=== PATIENT | male | born 1990 | race African-American/Black ===

== ENCOUNTER 2021-04-21 22:14 | Emergency (ER) | payer OTHER, SELFPAY ==
--- NOTE | ~2021-04-21 | XR_ITS ---
EXAMINATION: XR chest 2V DATE: 04/21/2021 22:42 INDICATION: Palpitations and congestion, left-sided chest pain TECHNIQUE: PA and lateral views of the chest are obtained. COMPARISON: 10/30/2006 FINDINGS: The lungs are free of acute opacities. There is no pleural effusion or pneumothorax. The ca rdiomediastinal silhouette is normal. The visualized bones and soft tissues are unremarkable. IMPRESSION: 1. No acute cardiopulmonary abnormality. Reviewed, dictated and finalized at location A.
[2021-04-21 22:16] VITALS: BP 151/94; PULSE 79; RESP 20; TEMP 36.7; O2SAT 100
--- NOTE | 2021-04-21 22:16 | ECG_ITS ---
Measurements Intervals [place] Rate: 77 P: 57 PA: 132 QRS: 67 QRSD: 80 T: 49 QT: 346 QTc: 393 Interpretive Statements SINUS RHYTHM ST ELEVATION IN DIFFUSE LEADS- PROBABLY EARLY REPOLARIZATION ABNORMALITY BORDERLINE ECG Electronically Signed On 04-22-2021 5:21:59 CDT by Matti Pierson D.O.
[2021-04-21 23:12] LABS: Basophils Percent Auto 0.4 % (0.2-1.2); Eosinophils Absolute Auto 1.1 K/mm3 (0-0.3); Eosinophils Percent Auto 14.4 % (0-4.4); Hematocrit 43.9 % (42.0-52.0); Hemoglobin 14.3 g/dL (14.0-18.0); Immature Granulocyte Absolute 0.02 K/mm3 (0.00-0.031); Immature Granulocyte Percent A 0.3 % (0-0.5); Lymphocytes Absolute Auto 2.78 K/mm3 (0.9-3.2); Lymphocytes Percent Auto 37.8 % (18.3-44.2); Mean Corpuscular HGB Conc 32.6 g/dl (32-36); Mean Corpuscular Hemoglobin 27.9 pg (26-34); Mean Corpuscular Volume 85.6 fl (80-100); Mean Platelet Volume 9.8 fl (7.4-10.4); Monocytes Absolute Auto 0.8 K/mm3 (0.1-0.6); Monocytes Percent Auto 10.6 % (2.6-8.5); Neutrophils Absolute Auto 2.7 K/mm3 (1.3-6.7); Neutrophils Percent Auto 36.5 % (45.5-73.1); Platelet Count Result 248 k/mm3 (150-375); Red Blood Count 5.13 M/mm3 (4.6-6.20); Red Cell Distribution Width 13.1 % (11.5-14.5); White Blood Count 7.4 K/mm3 (4.5-10.0)
[2021-04-21 23:17] LABS: INR 1.1; Prothrombin Time 13.7 Seconds (11.1-14.7)
[2021-04-21 23:18] LABS: Partial Thromboplastin Time 30.7 SECONDS (22.3-36.8)
[2021-04-21 23:24] LABS: Anion Gap 12 mmol/L (8-16); Blood Urea Nitrogen 14 mg/dL (9-20); Calcium 9.4 mg/dL (8.4-10.2); Carbon Dioxide 22 mmol/L (22-30); Chloride 104 mmol/L (98-107); Estimated CRCL calculation 67 ml/min; Estimated Glomerular Filt Rate > 60; Glucose 106 mg/dL (65-110); Sodium 138 mmol/L (137-145)
[2021-04-21 23:33] LABS: Troponin I < 0.012 ng/mL (0.000-0.034)
[2021-04-21 23:57] VITALS: BP 135/92; PULSE 77; RESP 12; O2SAT 98
--- NOTE | 2021-04-22 00:33 | ED.GENADULT ---
HPI - General Adult General Chief complaint: Arrhythmia/Palpitations Stated complaint: chest palpitations Time Seen by Provider: 04/21/21 23:40 History of Present Illness HPI narrative: Patient 30-year-old gentleman who presents the emergency department with chief complaint of palpitations. Patient reports that he has history of asthma and reports that has had some upper respiratory symptoms recently and noticed has been wheezing the patient used his albuterol nebulizer today and noticed that his heart was beating fast afterwards. Patient denies chest pain reports that he feels as though he is congested denies fever denies chills. Patient reports this feels similar to whenever he has had problems with his asthma being flared up Related Data Home Medications Medication Instructions Recorded Confirmed albuterol sulfate 04/21/21 albuterol sulfate INHALATION 04/21/21 pantoprazole PO 04/21/21 prednisone 04/21/21 sulfamethoxazole-trimethoprim tablet 04/21/21 Allergies Allergy/AdvReac Type Severity Reaction Status Date / Time omeprazole AdvReac Nausea and Verified 04/21/21 23:56 Vomiting Review of Systems Review of Systems: A 10 system review of systems was completed on the patient and is negative except for what is stated in the HPI. Nursing and ancillary documentation was reviewed. PMFSH Comments Past medical history significant for asthma Social history patient denies illicit drug use Exam Narrative: GENERAL: Well-appearing, well-nourished, and in no acute distress. HEAD: Normocephalic, atraumatic. EYES: PERRLA and EOMI. ENT: Nares clear, no rhinorrhea or epistaxis. Mucous membranes moist. NECK: Supple. CHEST: Wheezes present bilaterally and inspiratory and expiratory.. No respiratory distress. HEART: Regular rate and rhythm. No murmur heard. Normal peripheral pulses. ABDOMEN: Soft, nontender, nondistended, normal active bowel sounds. EXTREMITIES: Normal range of motion. No edema. SKIN: Warm, dry, no rash. NEURO: No focal deficits. Alert and oriented x3. PSYCH: Normal mood and affect. Course Vital Signs Vital signs: Vital Signs Temperature 36.7 C 04/21/21 22:16 Pulse Rate 79 04/21/21 22:16 Respiratory Rate 20 04/21/21 22:16 Blood Pressure 151/94 H 04/21/21 22:16 Pulse Oximetry 100 04/21/21 22:16 Temperature 36.7 C 04/21/21 22:16 Pulse Rate 69 04/22/21 00:36 Respiratory Rate 14 04/22/21 00:36 Blood Pressure 130/97 H 04/22/21 00:36 Pulse Oximetry 98 04/22/21 00:36 Medical Decision Making Vital Signs Vital Signs: Vital Signs Temperature 36.7 C 04/21/21 22:16 Pulse Rate 79 04/21/21 22:16 Respiratory Rate 20 04/21/21 22:16 Blood Pressure 151/94 H 04/21/21 22:16 Pulse Oximetry 100 04/21/21 22:16 Temperature 36.7 C 04/21/21 22:16 Pulse Rate 69 04/22/21 00:36 Respiratory Rate 14 04/22/21 00:36 Blood Pressure 130/97 H 04/22/21 00:36 Pulse Oximetry 98 04/22/21 00:36 Lab Data Result diagrams: 04/21/21 22:34 04/21/21 22:34 Labs: Lab Results 04/21/21 04/21/21 04/21/21 Range/Units 22:34 22:34 22:34 WBC 7.4 (4.5-10.0) K/mm3 RBC 5.13 (4.6-6.20) M/mm3 Hgb 14.3 (14.0-18.0) g/dL Hct 43.9 (42.0-52.0) % MCV 85.6 (80-100) fl MCH 27.9 (26-34) pg MCHC 32.6 (32-36) g/dl RDW 13.1 (11.5-14.5) % Plt Count 248 (150-375) k/mm3 MPV 9.8 (7.4-10.4) fl Immature Gran % (Auto) 0.3 (0-0.5) % Neut % (Auto) 36.5 L (45.5-73.1) % Lymph % (Auto) 37.8 (18.3-44.2) % Hod[place]eman % (Auto) 10.6 H (2.6-8.5) % Eos % (Auto) 14.4 H (0-4.4) % Baso % (Auto) 0.4 (0.2-1.2) % Lymph # (Auto) 2.78 (0.9-3.2) K/mm3 Hodgeman # (Auto) 0.8 H (0.1-0.6) K/mm3 Eos # (Auto) 1.1 H (0-0.3) K/mm3 Baso # (Auto) 0.0 (0.0-0.1) K/mm3 Abs Immat Gran (auto) 0.02 (0.00-0.031) K/mm3 Absolute Neuts (auto) 2.7 (1.3-6.7) K/mm3 Absolute Nuclea
[2021-04-22 00:36] VITALS: BP 130/97; PULSE 69; RESP 14; O2SAT 98
[2021-04-22] MEDS: ASPIRIN 81 MG CHEWABLE TABLET 324 MG PO (00:37)
[2021-04-22] MEDS: methylPREDNISolone SOD SUCC 125 MG VIAL IM (00:37)
[2021-04-22 01:20] VITALS: BP 128/86; PULSE 71; RESP 14; O2SAT 100
== END 2021-04-22 01:25 | disposition home or self-care (01) ==
PROVIDERS: Emergency Provider Emergency Medicine; PCP Family Medicine
DX: J45.901 Unspecified asthma with (acute) exacerbation (principal); R00.2 Palpitations; Z87.09 Personal history of other diseases of the respiratory system
CPT/HCPCS: 36415; 71046; 80048; 84484; 85025; 85610; 85730; 93005; 96372; 99284; A9270; J2930

== ENCOUNTER 2021-04-23 18:37 | Emergency (ER) | payer OTHER, SELFPAY ==
--- NOTE | ~2021-04-23 | XR_ITS ---
XR chest 2V DATE: 04/23/2021 21:10 INDICATION: Intermittent chest pain, numbness, tingling radiating down arm. History of asthma. TECHNIQUE: AP and lateral views COMPARISON: 04/21/2021 PA and lateral chest FINDINGS: Normal heart size. No hilar or mediastinal enlargement. Is bilateral hyperinflation. No pul monary infiltrate or consolidation, pleural effusion or pulmonary vascular congestion or pneumothorax . IMPRESSION: Bilateral hyperinflation; no active cardiopulmonary disease Reviewed, dictated and finalized at location A.
[2021-04-23 19:06] VITALS: BP 132/96; PULSE 79; RESP 18; O2SAT 100
--- NOTE | 2021-04-23 19:11 | ECG_ITS ---
Measurements Intervals [place] Rate: 82 P: 62 [place]: 135 QRS: 59 QRSD: 86 T: 32 QT: 332 QTc: 388 Interpretive Statements SINUS RHYTHM WITH SINUS ARRHYTHMIA VOLTAGE CRITERIA FOR LVH ST ELEVATION IN DIFFUSE LEADS- PROBABLY EARLY REPOLARIZATION ABNORMALITY BASELINE ARTIFACT- I, II, III, AVR, AVL, AVF BORDERLINE ECG Electronically Signed On 04-23-2021 19:52:14 CDT by Matti Pierson D.O.
[2021-04-23 20:40] VITALS: BP 142/94; PULSE 75; RESP 14; O2SAT 96
--- NOTE | 2021-04-23 20:56 | ED.CHESTPAIN ---
HPI - Chest Pain General Chief Complaint: Chest Pain Stated Complaint: palpatations Time Seen by Provider: 04/23/21 20:55 Source: patient Mode of arrival: ambulatory Limitations: no limitations History of Present Illness HPI narrative: The patient is a 30-year-old male with a history of Crohn's disease, asthma, who presents for evaluation of palpitations. Patient states at the time of assessment he has no current symptoms. He denies current palpitations or chest pain. Patient states that earlier this morning, he was weed eating a commercial site, when he felt a piece of grass fly into his right eye. He reports right eye irritation and redness, prompting him to take a Benadryl and use some eyedrops that he had on hand. Patient then fell asleep after taking the Benadryl and awakened with palpitations. Patient denied any current chest pain. States he wanted to come to the emergency department as a caution. Patient denies any current shortness of breath, chest pain. He does have a history of asthma and was recently seen at this facility, has been taking prednisone and using albuterol nebulizer which does improve his wheezing. He denies any current pain in the back, lower abdomen or flanks. No difficulty with ambulation. No leg swelling or calf pain. He has no history of Covid. He is not vaccinated for Covid. No recent upper respiratory infections. No history of coagulopathy. No long recent car or air travel. No recent immobility. Patient is quite active. Related Data Home Medications Medication Instructions Recorded Confirmed pantoprazole 20 mg PO DAILY 04/21/21 hyoscyamine sulfate 0.125 mg PO PRN PRN 04/23/21 04/23/21 Allergies Allergy/AdvReac Type Severity Reaction Status Date / Time omeprazole AdvReac Nausea and Verified 04/23/21 20:19 Vomiting Review of Systems Review of Systems: CONSTITUTIONAL: Denies fever, chills, or sweats. EYES: Denies visual changes, redness, or discharge. ENT: Denies rhinorrhea, congestion, sore throat, or otalgia. CARDIOVASCULAR: Denies chest pain, reports earlier palpitations, now resolved, denies lower extremity edema RESPIRATORY: Denies cough or dyspnea. Reports daily wheezing. GASTROINTESTINAL: Denies abdominal pain, nausea, vomiting, or diarrhea. GENITOURINARY: Denies dysuria or hematuria. SKIN: Denies rash or itching. MUSCULOSKELETAL: Denies back pain, joint pain, or myalgia. NEUROLOGIC: Denies headache, numbness, or weakness. PSYCHIATRIC: Patient does report history of anxiety, was unsure if perhaps his anxiety was causing the palpitations [facility] Social History Social History (Updated 04/23/21 @ 21:30 by Lesly Lee MD) Smoking status: Never smoker Alcohol intake: current Alcohol use details: Rarely Substance use: never Gender identity (if verbalized by the patient): Male Exam Narrative: GENERAL: Awake, alert, conversant HEAD: Normocephalic, atraumatic. EYES: PERRLA and EOMI. ENT: Nares clear, no rhinorrhea or epistaxis. Mucous membranes moist. NECK: Supple. CHEST: No respiratory distress, breathing even and non labored, no chest wall tenderness, patient does have expiratory wheezing bilaterally of the mid and lower lung zones HEART: Regular rate, sinus rhythm ABDOMEN:Non distended, non tender EXTREMITIES: Normal range of motion. No edema. SKIN: Warm, dry, no rash. NEURO:No focal deficits. Alert and oriented x3 Course Vital Signs Vital signs: Vital Signs Pulse Rate 79 04/23/21 19:06 Respiratory Rate 18 04/23/21 19:06 Blood Pressure 132/96 H 04/23/21 19:06 Pulse Oximetry 100 04/23/21 19:06 Pulse Rate 75 04/23/21 20:40 Respiratory Rate 14 04/23/21 20:40 Blood Pressure 142/94 H 04/23/21 20:40 Pulse Oximetry 96 04/23/21 20:40 MDM - Chest Pain MDM Narrative Medical decision making narrative: Patient presenting for evaluation of palpitations that are resolved at the time of assessment. Patient denied any current
[2021-04-23 21:34] LABS: Basophils Percent Auto 0.4 % (0.2-1.2); Eosinophils Absolute Auto 0.2 K/mm3 (0-0.3); Eosinophils Percent Auto 1.6 % (0-4.4); Hematocrit 44.9 % (42.0-52.0); Hemoglobin 14.7 g/dL (14.0-18.0); Immature Granulocyte Absolute 0.01 K/mm3 (0.00-0.031); Immature Granulocyte Percent A 0.1 % (0-0.5); Lymphocytes Absolute Auto 4.53 K/mm3 (0.9-3.2); Lymphocytes Percent Auto 49.6 % (18.3-44.2); Mean Corpuscular HGB Conc 32.7 g/dl (32-36); Mean Corpuscular Hemoglobin 28.4 pg (26-34); Mean Corpuscular Volume 86.7 fl (80-100); Mean Platelet Volume 9.4 fl (7.4-10.4); Monocytes Absolute Auto 0.8 K/mm3 (0.1-0.6); Monocytes Percent Auto 8.8 % (2.6-8.5); Neutrophils Absolute Auto 3.6 K/mm3 (1.3-6.7); Neutrophils Percent Auto 39.5 % (45.5-73.1); Platelet Count Result 273 k/mm3 (150-375); Red Blood Count 5.18 M/mm3 (4.6-6.20); Red Cell Distribution Width 13.2 % (11.5-14.5); White Blood Count 9.1 K/mm3 (4.5-10.0)
[2021-04-23 21:44] LABS: Anion Gap 13 mmol/L (8-16); Blood Urea Nitrogen 24 mg/dL (9-20); Calcium 9.6 mg/dL (8.4-10.2); Carbon Dioxide 24 mmol/L (22-30); Chloride 105 mmol/L (98-107); Estimated CRCL calculation 77 ml/min; Estimated Glomerular Filt Rate > 60; Glucose 95 mg/dL (65-110); Potassium 3.9 mmol/L (3.4-5.0); Sodium 142 mmol/L (137-145)
[2021-04-23 21:56] LABS: Troponin I < 0.012 ng/mL (0.000-0.034)
== END 2021-04-23 22:14 | disposition home or self-care (01) ==
PROVIDERS: Emergency Provider Emergency Medicine; PCP Family Medicine
DX: R00.2 Palpitations (principal); J45.909 Unspecified asthma, uncomplicated; F41.9 Anxiety disorder, unspecified; Z87.19 Personal history of other diseases of the digestive system
CPT/HCPCS: 36415; 71046; 80048; 84484; 85025; 93005; 99284

== ENCOUNTER 2022-10-13 08:43 | Emergency (ER) | payer OTHER, SELFPAY ==
--- NOTE | ~2022-10-13 | XR_ITS ---
EXAMINATION: XR chest 2V DATE: 10/13/2022 09:54 INDICATION: Chest pain. Palpitations. TECHNIQUE: Frontal and lateral views of the chest were obtained. COMPARISON: Chest 2 views 04/23/2021 FINDINGS: There is no pneumonia, pleural effusion, or pneumothorax. The heart size is normal. IMPRESSION: 1. No acute cardiopulmonary disease. Reviewed, dictated and finalized at location D. [employer] TECHNICIAN
--- NOTE | 2022-10-13 08:49 | ECG_ITS ---
Measurements Intervals [place] Rate: 83 P: 63 PA: 143 QRS: 63 QRSD: 86 T: 45 QT: 335 QTc: 394 Interpretive Statements SINUS RHYTHM VOLTAGE CRITERIA FOR LVH BASELINE ARTIFACT- I, II, III, AVR, AVL, AVF, V1-V6 NORMAL ECG COMPARED TO ECG 04/23/2021 19:08:30 NO SIGNIFICANT CHANGES Electronically Signed On 10-13-2022 16:41:47 [employer]PERATOR by Matti Pierson D.O.
[2022-10-13 08:57] VITALS: BP 153/94; PULSE 92; RESP 16; TEMP 36.6; O2SAT 100
[2022-10-13] MEDS: ASPIRIN 81 MG CHEWABLE TABLET 324 MG PO (09:43)
[2022-10-13 10:00] LABS: Basophils Percent Auto 0.5 % (0.2-1.2); Eosinophils Absolute Auto 0.6 K/mm3 (0-0.3); Eosinophils Percent Auto 10.7 % (0-4.4); Hematocrit 42.6 % (42.0-52.0); Hemoglobin 13.9 g/dL (14.0-18.0); Immature Granulocyte Absolute 0.01 K/mm3 (0.00-0.031); Immature Granulocyte Percent A 0.2 % (0-0.5); Mean Corpuscular HGB Conc 32.6 g/dl (32-36); Mean Corpuscular Volume 85.9 fl (80-100); Mean Platelet Volume 9.6 fl (7.4-10.4); Monocytes Absolute Auto 0.5 K/mm3 (0.1-0.6); Monocytes Percent Auto 8.2 % (2.6-8.5); Neutrophils Absolute Auto 2.2 K/mm3 (1.3-6.7); Neutrophils Percent Auto 38.4 % (45.5-73.1); Platelet Count Result 242 k/mm3 (150-375); Red Blood Count 4.96 M/mm3 (4.6-6.20); Red Cell Distribution Width 13.4 % (11.5-14.5); White Blood Count 5.7 K/mm3 (4.5-10.0)
[2022-10-13 10:03] VITALS: PULSE 81; RESP 10; O2SAT 100
[2022-10-13 10:10] LABS: Prothrombin Time 13.2 Seconds (11.1-14.7)
[2022-10-13 10:12] LABS: Partial Thromboplastin Time 26.8 SECONDS (22.3-36.8)
[2022-10-13] MEDS: KETOROLAC 30 MG/ML VIAL (*BKC) IV PUSH (10:13)
--- NOTE | 2022-10-13 10:19 | ED.GENADULT ---
HPI - General Adult General Chief complaint: Chest Pain Stated complaint: chest pain x1 week Time Seen by Provider: 10/13/22 09:32 History of Present Illness HPI narrative: Patient is a 32-year-old male who presents ER with left-sided chest achiness. Ongoing for the last week. Worse when he is lying on his side or laying down flat. He has been having cough and thinks that the symptoms are related to this. No fevers or chills or sweats. Cough is nonproductive. No exertional chest discomfort. No loss consciousness. No history of heart disease personally or in his family. No pain with deep breath. No hemoptysis. Related Data Home Medications Medication Instructions Recorded Confirmed pantoprazole 20 mg tablet,delayed 20 mg PO DAILY 04/21/21 release hyoscyamine sulfate 0.125 mg tablet 0.125 mg PO PRN PRN Cramps 04/23/21 04/23/21 Allergies Allergy/AdvReac Type Severity Reaction Status Date / Time omeprazole AdvReac Nausea and Verified 04/23/21 20:19 Vomiting Review of Systems Review of Systems: All systems reviewed & are unremarkable except as noted in HPI and below Constitutional: Constitutional: Denies chills, Denies fatigue and Denies fever(s) ENT: Denies nasal congestion and Denies sore throat Cardiovascular: Cardiovascular: Reports chest pain, Denies rapid heart rate and Denies radiating jaw, neck or arm pain Respiratory: Respiratory: Reports cough, Denies dyspnea and Denies wheezing Gastrointestinal: Gastrointestinal: Denies abdominal pain, Denies nausea and Denies vomiting PMFSH Past Medical History Medical History (Updated 10/13/22 @ 10:46 by Son Anthony MD) Asthma Crohn's disease Surgical History Surgical History (Updated 10/13/22 @ 10:46 by Son Anthony MD) No history of previous surgery Social History Social History (Updated 04/23/21 @ 21:30 by Lesly Lee MD) Smoking status: Never smoker Alcohol intake: current Alcohol use details: Rarely Substance use: never Gender identity (if verbalized by the patient): Male Exam Narrative: GENERAL: Well-appearing, well-nourished, and in no acute distress. HEAD: Normocephalic, atraumatic. ENT: Mucous membranes moist. CHEST: Clear to auscultation. No respiratory distress. HEART: Regular rate and rhythm. Normal peripheral pulses. ABDOMEN: Soft, nontender, nondistended. EXTREMITIES: Normal range of motion. No edema. SKIN: Warm, dry, no rash. NEURO: Alert and oriented x3. PSYCH: Normal mood and affect. Course Course Emergency Course: Patient resting comfortably. Informed of results. Given reassurance. Will start on prednisone burst. Patient thinks he may need prednisone related to his asthma, patient also could have some pleurisy or just general muscle aches which seems more likely. Anti-inflammatories should help all of these issues. Vital Signs Vital signs: Vital Signs Temperature 97.9 F 10/13/22 08:57 Pulse Rate 92 10/13/22 08:57 Respiratory Rate 16 10/13/22 08:57 Blood Pressure 153/94 H 10/13/22 08:57 Pulse Oximetry 100 10/13/22 08:57 Oxygen Delivery Room Air 10/13/22 08:57 Temperature 97.9 F 10/13/22 08:57 Pulse Rate 92 10/13/22 08:57 Respiratory Rate 16 10/13/22 08:57 Blood Pressure 153/94 H 10/13/22 08:57 Pulse Oximetry 100 10/13/22 08:57 Oxygen Delivery Room Air 10/13/22 08:57 Medical Decision Making Vital Signs Vital Signs: Vital Signs Temperature 97.9 F 10/13/22 08:57 Pulse Rate 92 10/13/22 08:57 Respiratory Rate 16 10/13/22 08:57 Blood Pressure 153/94 H 10/13/22 08:57 Pulse Oximetry 100 10/13/22 08:57 Oxygen Delivery Room Air 10/13/22 08:57 Temperature 97.9 F 10/13/22 08:57 Pulse Rate 92 10/13/22 08:57 Respiratory Rate 16 10/13/22 08:57 Blood Pressure 153/94 H 10/13/22 08:57 Pulse Oximetry 100 10/13/22 08:57 Oxygen Delivery Room Air 10/13/22 08:57 Lab Data 10/13/22 09:47
[2022-10-13 10:22] VITALS: PULSE 80; RESP 18; O2SAT 100
[2022-10-13 10:34] LABS: Alanine Aminotransferase 29 U/L (6-50); Albumin Level 4.7 g/dL (3.5-5.1); Alkaline Phosphatase 57 U/L (38-126); Anion Gap 7 mmol/L (8-16); Aspartate Amino Transferase 29 U/L (17-59); Bilirubin,Total 0.4 mg/dL (0.2-1.3); Blood Urea Nitrogen 16 mg/dL (9-20); Calcium 9.1 mg/dL (8.4-10.2); Carbon Dioxide 27 mmol/L (22-30); Chloride 106 mmol/L (98-107); Estimated CRCL calculation 93 ml/min; Estimated Glomerular Filt Rate > 60; Glucose 95 mg/dL (65-110); Lipase 74 U/L (23-300); Potassium 4.3 mmol/L (3.4-5.0); Sodium 140 mmol/L (137-145); Troponin I < 0.012 ng/mL (0.000-0.034)
[2022-10-13 10:44] VITALS: PULSE 81; RESP 16; O2SAT 99
[2022-10-13 10:45] VITALS: PULSE 79; RESP 12; O2SAT 100
== END 2022-10-13 11:09 | disposition home or self-care (01) ==
PROVIDERS: Emergency Provider Emergency Medicine; PCP Family Medicine
DX: R07.89 Other chest pain (principal); J45.909 Unspecified asthma, uncomplicated; K50.90 Crohn's disease, unspecified, without complications
CPT/HCPCS: 36415; 71046; 80053; 83690; 84484; 85025; 85610; 85730; 93005; 96374; 99284; A9270; J1885

== ENCOUNTER 2022-11-10 06:34 | Emergency (ER) | payer OTHER, SELFPAY ==
[2022-11-10] VITALS (7 sets, daily range): BP systolic 110–129; BP diastolic 74–77; PULSE 83–96; RESP 16–20; TEMP 36.9–37.8; O2SAT 97–100
--- NOTE | ~2022-11-10 | XR_ITS ---
EXAMINATION: XR chest 2V DATE: 11/10/2022 08:47 INDICATION: Cough, fever and body aches TECHNIQUE: PA and lateral views of the chest were obtained. COMPARISON: Chest radiograph dated 10/13/2022 FINDINGS: The lungs remain clear with no focal airspace opacities, pulmonary edema, pleural effusion or pneumot horax. The cardiomediastinal silhouette is normal. Visualized bones and soft tissues are unremarkable . IMPRESSION: 1. No acute cardiopulmonary disease. Reviewed, dictated and finalized at location A.
--- NOTE | ~2022-11-10 | CT_ITS ---
EXAMINATION: CT abdomen pelvis w con INDICATION: Cough and body aches TECHNIQUE: Computed tomographic images of the abdomen and pelvis were obtained after the administrati on of 100 cc of Omnipaque 350 intravenous contrast. The dose-length product (DLP) was 303.97 mGy-cm. Automated exposure control and iterative reconstruction technique were employed. COMPARISON: None available FINDINGS: The lung bases are clear. The heart size is normal. The liver, spleen, pancreas, gallbladde r, and adrenal glands are normal. The kidneys are unremarkable. No pathologically enlarged abdominal or pelvic lymph nodes are identified. No free intraperitoneal gas or evidence of bowel obstruction. T here are changes of appendectomy. IMPRESSION: 1. No CT correlate for the patient's symptoms. Reviewed, dictated and finalized at location B.
[2022-11-10] MEDS: KETOROLAC (*BKC) 60 MG/2 ML VIAL IM (07:21)
[2022-11-10 07:50] LABS: Strep Group A RT-PCR NOT DETECTED (Negative)
[2022-11-10 08:11] LABS: Influenza A QL RT-PCR Negative (Negative); Influenza B QL RT-PCR Negative (Negative); RSV RNA, RT-PCR Negative (Negative); SARS-CoV-2 RNA PCR Negative
--- NOTE | 2022-11-10 08:21 | ED.GENADULT ---
HPI - General Adult General Chief complaint: Unspecified Stated complaint: Body aches, fever, ST Time Seen by Provider: 11/10/22 06:57 Source: patient and RN notes reviewed Mode of arrival: ambulatory Limitations: no limitations History of Present Illness HPI narrative: THis is a 32 year old male who presents for evaluation of fever, chills. He reports he has had body aches, sore throat since Thursday. He states that his body aches are getting worse. He has been having fever up to 101. He has been taking ibuprofen for his body aches, and it helps for 4 hours. He also reports mild cough. He denies nausea, vomiting or abdominal pain. He denies sick contacts. He thinks he may have strep throat, and he has pain with swallowing. He las took ibuprofen yesterday. Related Data Home Medications Medication Instructions Recorded Confirmed pantoprazole 20 mg tablet,delayed 20 mg PO DAILY 04/21/21 release hyoscyamine sulfate 0.125 mg tablet 0.125 mg PO PRN PRN Cramps 04/23/21 04/23/21 Allergies Allergy/AdvReac Type Severity Reaction Status Date / Time omeprazole AdvReac Nausea and Verified 11/10/22 07:21 Vomiting Review of Systems Constitutional: Constitutional: Reports body ache(s), Reports chills, Reports fever(s) and Denies weakness ENT: Reports odynophagia and Reports sore throat Cardiovascular: Cardiovascular: Denies syncope, Denies rapid heart rate, Denies irregular heart rhythm, Denies leg edema and Denies dyspnea Respiratory: Respiratory: Denies chest congestion, Reports cough, Denies hemoptysis, Denies excessive phlegm production and Denies dyspnea Gastrointestinal: Gastrointestinal: Denies abdominal pain, Denies hematochezia, Denies diarrhea and Denies vomiting Genitourinary: Genitourinary: Denies hematuria, Denies dysuria, Denies penile discharge and Denies testicular pain Musculoskeletal: Musculoskeletal: Denies joint swelling, Denies loss of height and Denies muscle weakness Neurologic: Denies syncope, Denies focal weakness and Denies weakness PMFSH Past Medical History Medical History Asthma Crohn's disease Surgical History Surgical History No history of previous surgery Social History Social History Smoking status: Never smoker Alcohol intake: current Alcohol use details: Rarely Substance use: never Gender identity (if verbalized by the patient): Male Exam Narrative: GENERAL: Well-appearing, well-nourished, and in no acute distress. HEAD: Normocephalic, atraumatic EYES: PERRLA and EOMI, conjunctiva clear without discharge EARS: TM's clear bilaterally without erythema or dullness NOSE: Nares clear, no rhinorrhea or epistaxis THROAT:Mucous membranes moist, bilateral tonsillar enlargement and redness, no exudates NECK: Supple, without lymphadenopathy or mass RESPIRATORY: No respiratory distress, Airway patent, Respirations non-labored, Clear to auscultation without rales, rhonchi or wheeze HEART: Regular rate and rhythm. No murmur heard. Normal peripheral pulses. ABDOMEN: Soft, epigastric tenderness, nondistended, normal active bowel sounds. No masses. No rebound or guarding, No organomegaly. EXTREMITIES: No edema, normal strength with full range of motion. SKIN: Warm, dry, normal color without rash NEURO: Alert and oriented x3. CN 2-12 grossly intact. No focal deficits. PSYCH: Normal mood and affect. Neuro: Speech: No Abnormal speech present Course Reevaluation(s) Reevaluation #1: Patient reports body aches improved. I Discussed with patient labs and plan to discharged. Date: 11/10/22 Time: 10:51 Vital Signs Vital signs: Vital Signs Temperature 99.0 F 11/10/22 06:36 Pulse Rate 93 11/10/22 06:36 Respiratory Rate 16 11/10/22 06:36 Blood Pressure 117/76 11/10/22 06:36 Pulse Ox
[2022-11-10 08:39] LABS: Basophils Percent Auto 0.1 % (0.2-1.2); Eosinophils Percent Auto 0.2 % (0-4.4); Hematocrit 40.6 % (42.0-52.0); Hemoglobin 13.7 g/dL (14.0-18.0); Immature Granulocyte Absolute 0.06 K/mm3 (0.00-0.031); Immature Granulocyte Percent A 0.5 % (0-0.5); Lymphocytes Absolute Auto 1.19 K/mm3 (0.9-3.2); Lymphocytes Percent Auto 9.2 % (18.3-44.2); Mean Corpuscular HGB Conc 33.7 g/dl (32-36); Mean Corpuscular Hemoglobin 28.9 pg (26-34); Mean Corpuscular Volume 85.7 fl (80-100); Mean Platelet Volume 9.6 fl (7.4-10.4); Monocytes Absolute Auto 1.3 K/mm3 (0.1-0.6); Monocytes Percent Auto 9.7 % (2.6-8.5); Neutrophils Absolute Auto 10.5 K/mm3 (1.3-6.7); Neutrophils Percent Auto 80.3 % (45.5-73.1); Platelet Count Result 200 k/mm3 (150-375); Red Blood Count 4.74 M/mm3 (4.6-6.20); Red Cell Distribution Width 13.1 % (11.5-14.5)
[2022-11-10 08:49] LABS: Appearance Urine Clear (Clear); Bacteria Urine None Seen /hpf; Bilirubin Urine Negative (Negative); Blood Urine Negative (Negative); Color Urine Yellow (Yellow); Glucose Urine UA Negative (Negative); Ketones Urine 1+ mg/dL (Negative); Leukocyte Esterase Ur Negative LEU/UL (Negative); Nitrate Urine Negative (Negative); Non Pathogenic Casts 0-2; Protein Urine Trace mg/dL (Negative); RBC Urine 0-2 /hpf (0-2); Squamous Epithelial Cell Urine None seen /hpf (Few); WBC Urine 0-5 /hpf; pH Urine 6.5 (5.0-9.0)
[2022-11-10 08:49] LABS: Alanine Aminotransferase 19 U/L (6-50); Albumin Level 4.3 g/dL (3.5-5.1); Alkaline Phosphatase 63 U/L (38-126); Anion Gap 8 mmol/L (8-16); Aspartate Amino Transferase 20 U/L (17-59); Bilirubin,Total 0.8 mg/dL (0.2-1.3); Blood Urea Nitrogen 14 mg/dL (9-20); Calcium 8.8 mg/dL (8.4-10.2); Carbon Dioxide 22 mmol/L (22-30); Chloride 104 mmol/L (98-107); Estimated CRCL calculation 75 ml/min; Estimated Glomerular Filt Rate > 60; Glucose 103 mg/dL (65-110); Potassium 3.8 mmol/L (3.4-5.0); Sodium 134 mmol/L (137-145)
[2022-11-10 08:54] LABS: Add Urine Microscopic? YES
[2022-11-10 08:56] LABS: Monoscreen Negative (Negative); Negative Monotest Control Negative (Negative); Positive Monotest Control Positive (Positive)
[2022-11-10] MEDS: SODIUM CHLORIDE 0.9% IV 1,000 ML 999 ML IV CONT (10:04)
== END 2022-11-10 11:12 | disposition home or self-care (01) ==
PROVIDERS: Emergency Medicine; Emergency Provider General Practice; PCP Family Medicine
DX: J02.9 Acute pharyngitis, unspecified (principal); Z20.822 Contact with and (suspected) exposure to COVID-19; J45.909 Unspecified asthma, uncomplicated; K50.90 Crohn's disease, unspecified, without complications
CPT/HCPCS: 36415; 71046; 74177; 80053; 81001; 85025; 86308; 87637; 87651; 96365; 96372; 99284; J0131; J1885; J7030; Q9967

== ENCOUNTER 2023-04-12 20:22 | Emergency (ER) | payer OTHER, SELFPAY ==
--- NOTE | ~2023-04-12 | XR_ITS ---
Clinical Indication: Shortness of breath PA and lateral views of the chest: Comparison: 11/10/2022 Findings: The lungs are clear, without evidence of focal consolidation or pleural effusion. Cardiome diastinal silhouette is within normal limits. Bones and soft tissues are unremarkable. Impression: Normal chest. Reviewed, dictated and finalized at location . Impression: Normal chest.
[2023-04-12 20:24] VITALS: BP 138/91; PULSE 92; RESP 20; TEMP 36.3; O2SAT 98
--- NOTE | 2023-04-12 20:27 | ECG_ITS ---
Measurements Intervals [place] Rate: 77 P: 70 [place]: 137 QRS: 68 QRSD: 85 T: 39 QT: 355 QTc: 403 Interpretive Statements SINUS RHYTHM WITH SINUS ARRHYTHMIA BORDERLINE T WAVE ABNORMALITY- INFERIOR LEADS BORDERLINE ECG COMPARED TO ECG 10/13/2022 08:56:12 SINUS ARRHYTHMIA NOW PRESENT T-WAVE ABNORMALITY NOW PRESENT Electronically Signed On 04-12-2023 20:59:43 CDT by Matti Pierson D.O.
[2023-04-12 20:41] LABS: Basophils Percent Auto 0.4 % (0.2-1.2); Eosinophils Absolute Auto 0.5 K/mm3 (0-0.3); Eosinophils Percent Auto 7.8 % (0-4.4); Hematocrit 45.1 % (42.0-52.0); Hemoglobin 14.8 g/dL (14.0-18.0); Immature Granulocyte Absolute 0.01 K/mm3 (0.00-0.031); Immature Granulocyte Percent A 0.1 % (0-0.5); Lymphocytes Absolute Auto 3.37 K/mm3 (0.9-3.2); Lymphocytes Percent Auto 48.6 % (18.3-44.2); Mean Corpuscular HGB Conc 32.8 g/dl (32-36); Mean Corpuscular Hemoglobin 28.2 pg (26-34); Mean Corpuscular Volume 85.9 fl (80-100); Mean Platelet Volume 9.5 fl (7.4-10.4); Monocytes Absolute Auto 0.5 K/mm3 (0.1-0.6); Monocytes Percent Auto 6.6 % (2.6-8.5); Neutrophils Absolute Auto 2.5 K/mm3 (1.3-6.7); Neutrophils Percent Auto 36.5 % (45.5-73.1); Platelet Count Result 247 k/mm3 (150-375); Red Blood Count 5.25 M/mm3 (4.6-6.20); Red Cell Distribution Width 13.1 % (11.5-14.5); White Blood Count 6.9 K/mm3 (4.5-10.0)
[2023-04-12 20:51] LABS: Alanine Aminotransferase 21 U/L (6-50); Albumin Level 4.6 g/dL (3.5-5.1); Alkaline Phosphatase 82 U/L (38-126); Anion Gap 13 mmol/L (8-16); Aspartate Amino Transferase 29 U/L (17-59); Bilirubin,Total 0.5 mg/dL (0.2-1.3); Blood Urea Nitrogen 22 mg/dL (9-20); Calcium 8.9 mg/dL (8.4-10.2); Carbon Dioxide 21 mmol/L (22-30); Chloride 103 mmol/L (98-107); Estimated CRCL calculation 66 ml/min; Estimated Glomerular Filt Rate > 60; Glucose 140 mg/dL (65-110); Potassium 3.6 mmol/L (3.4-5.0); Sodium 137 mmol/L (137-145)
[2023-04-12] MEDS: IPRATROPIUM BR 0.02% INH SOLN 0.5 MG/2.5 ML VIAL 1 MG INHALATION (23:55)
[2023-04-12] MEDS: ALBUTEROL SULFATE NEB 2.5 MG/3 ML INH 10 MG INHALATION (23:55)
[2023-04-12 23:58] VITALS: PULSE 85
[2023-04-12 23:59] VITALS: O2SAT 100
[2023-04-13] MEDS: MAGNESIUM SULF 2 GM/WATER 50ML 2 GM/50 ML BAG IVPB (00:09)
[2023-04-13 00:16] VITALS: BP 158/97; PULSE 81; O2SAT 95
[2023-04-13] MEDS: ACETAMINOPHEN 500 MG TABLET 1000 MG PO (01:27)
[2023-04-13] MEDS: IBUPROFEN 400 MG TABLET 800 MG PO (01:28)
[2023-04-13] MEDS: SODIUM CHLORIDE 0.9% IV 1,000 ML 999 ML IV CONT (01:29)
[2023-04-13] MEDS: DOXYCYCLINE HYCLATE 100 MG TABLET PO (01:35)
[2023-04-13] MEDS: AMOXICILLIN/CLAVULANATE K 875-125 MG TAB 1 TABLET PO (01:35)
[2023-04-13 01:36] VITALS: BP 141/93; PULSE 74; RESP 15; O2SAT 97
--- NOTE | 2023-04-13 01:48 | ED.GENADULT ---
HPI - General Adult General Chief complaint: Shortness of Breath/Dyspnea Stated complaint: Breathing problems Time Seen by Provider: 04/12/23 23:51 History of Present Illness HPI narrative: this is a 32-year-old male presenting ED with chief complaint shortness of breath. Patient had cold symptoms over a week ago. He was seen by his primary care physician and prescribed amoxicillin. He was taken as directed until his breathing got worse and he stops taking the amoxicillin. Now he is having worsening shortness of breath despite using his asthma exam treatments at home. He denies fevers, chest pain, nausea vomiting or diarrhea. Related Data Home Medications Medication Instructions Recorded Confirmed pantoprazole 20 mg tablet,delayed 20 mg PO DAILY 04/21/21 release hyoscyamine sulfate 0.125 mg tablet 0.125 mg PO PRN PRN Cramps 04/23/21 04/23/21 Allergies Allergy/AdvReac Type Severity Reaction Status Date / Time famotidine AdvReac Swelling Verified 04/13/23 00:02 omeprazole AdvReac Nausea and Verified 04/13/23 00:02 Vomiting PMFSH Past Medical History Medical History Asthma Crohn's disease Surgical History Surgical History No history of previous surgery Social History Social History Smoking status: Never smoker Alcohol intake: current Alcohol use details: Rarely Substance use: never Gender identity (if verbalized by the patient): Male Exam Narrative: APPEARANCE: No apparent distress. Head: atraumatic. EYES: EOMI, NOSE: Atraumatic NECK: Trachea midline RESPIRATORY: Scattered wheezing with rhonchi in the bases CARDIOVASCULAR: RRR, no peripheral edema ABDOMINAL: Non-distended soft nontender no guarding rebound MUSCULOSKELETAl: No obvious deformities NEURO: Alert. Moving 4/4 extremities SKIN:: Warm, dry. Normal color PSYCHIATRIC: Normal affect Course Vital Signs Vital signs: Vital Signs Temperature 97.4 F L 04/12/23 20:24 Pulse Rate 92 04/12/23 20:24 Respiratory Rate 20 04/12/23 20:24 Blood Pressure 138/91 H 04/12/23 20:24 Pulse Oximetry 98 04/12/23 20:24 Oxygen Delivery Room Air 04/12/23 20:24 Temperature 97.1 F L 04/13/23 03:09 Pulse Rate 78 04/13/23 03:09 Respiratory Rate 15 04/13/23 03:09 Blood Pressure 154/91 H 04/13/23 03:09 Pulse Oximetry 100 04/13/23 03:09 Oxygen Delivery Room Air 04/12/23 23:59 Medical Decision Making MDM Narrative Medical decision making narrative: -Course: 32-year-old male with asthma presenting with 10 days of cough with a worsening respiratory status for last 2 days. Patient has been on amoxicillin with no improvement. Patient has rhonchi in the lower lungs. This is concerning for secondary pneumonia. Patient will be treated with a course of steroids and a 10 day course of Augmentin and doxycycline. upon re-evaluation patient still had some wheezing but his respiratory status improved. He was able to pass an ambulatory pulse ox. Patient is comfortable going home and taking his breathing treatments and antibiotics. He will return if his condition is worsened. 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 Chest x-ray normal. Chest x-ray is insensitive for pneumonia. Independent EKG interpretation: Rhythm [sinus], Rate [77], Heth -[normal], MI -[normal], QRS [narrow], QTC [normal], T waves -[negative for concerning inversions], ST Segments - [Negative for concerning elevations] Final interpretations: [Normal Sin
[2023-04-13 02:46] LABS: Influenza A QL RT-PCR Negative (Negative); Influenza B QL RT-PCR Negative (Negative); RSV RNA, RT-PCR Negative (Negative); SARS-CoV-2 RNA PCR Negative (Negative)
[2023-04-13 03:09] VITALS: BP 154/91; PULSE 78; RESP 15; TEMP 36.2; O2SAT 100
[2023-04-13 04:02] VITALS: BP 135/90; PULSE 86; RESP 17; O2SAT 97
== END 2023-04-13 04:01 | disposition home or self-care (01) ==
PROVIDERS: Emergency Provider Emergency Medicine; PCP Family Medicine
DX: J18.9 Pneumonia, unspecified organism (principal); J45.909 Unspecified asthma, uncomplicated; Z20.822 Contact with and (suspected) exposure to COVID-19; K50.90 Crohn's disease, unspecified, without complications; R94.31 Abnormal electrocardiogram [ECG] [EKG]
CPT/HCPCS: 36415; 71046; 80053; 85025; 87637; 93005; 94640; 96361; 96365; 96375; 99284; A9270; J1100; J3475; J7030

== ENCOUNTER 2023-06-05 11:51 | Emergency (ER) | payer OTHER, SELFPAY ==
--- NOTE | 2023-06-05 11:59 | ED.GENADULT ---
HPI - General Adult General Chief complaint: Ear Stated complaint: Right Ear Irritation Time Seen by Provider: 06/05/23 12:28 Source: patient, RN notes reviewed and old records reviewed Mode of arrival: ambulatory Limitations: no limitations History of Present Illness HPI narrative: 33-year-old male presents to the [facility] with complaints right ear pain. Reports a long history of ear issues. States he has recently been on antibiotics for ear infections. Per medical record last antibiotics was for pneumonia seen in the ER. Patient reports that the ear pain has been going on for ?months , intermittently. Patient denies any other symptoms other than right ear pain and a muffled sound. Related Data Home Medications Medication Instructions Recorded Confirmed pantoprazole 20 mg tablet,delayed 20 mg PO DAILY 04/21/21 06/05/23 release hyoscyamine sulfate 0.125 mg tablet 0.125 mg PO PRN PRN Cramps 04/23/21 06/05/23 Allergies Allergy/AdvReac Type Severity Reaction Status Date / Time famotidine AdvReac Swelling Verified 06/05/23 12:00 omeprazole AdvReac Nausea and Verified 06/05/23 12:00 Vomiting Review of Systems Review of Systems: All systems reviewed & are unremarkable except as noted in HPI and below Constitutional: Constitutional: Reports no additional constitutional complaints Eyes: Eyes: Reports no additional eye complaints ENT: Reports as per HPI and Reports otalgia Cardiovascular: Cardiovascular: Reports no additional cardiovascular complaints, Denies chest pain and Denies dyspnea Respiratory: Respiratory: Reports no additional respiratory complaints, Denies chest congestion, Denies cough and Denies dyspnea Gastrointestinal: Gastrointestinal: Reports no additional gastrointestinal complaints, Denies abdominal pain, Denies nausea and Denies vomiting Musculoskeletal: Musculoskeletal: Reports no additional musculoskeletal complaints Integumentary/Breasts: Skin/Breast: Reports system reviewed and no additional complaints, except as docu Neurologic: Reports system reviewed and no additional complaints, except as documented Psychiatric: Psychiatric: Reports no additional psychiatric complaints Allergic/Immunologic: Allergic/Immunologic: Reports no additional allergic/immunologic complaints PMFSH Past Medical History Medical History Asthma Crohn's disease Surgical History Surgical History No history of previous surgery Social History Social History Smoking status: Never smoker Alcohol intake: current Alcohol use details: Rarely Substance use: never Gender identity (if verbalized by the patient): Male Comments At the time of my signature, I reviewed and agree with the nursing past medical, surgical, social, and family history. There is no relevant family history pertinent to the patient complaint. Exam Const: General: cooperative, healthy appearing, comfortable, no acute distress, well developed, alert and well nourished Nutritional Appearance: well nourished Orientation/consciousness: patient oriented x3 Limitations: no limitations HENMT: Head: normal to inspection Ears: hearing grossly normal bilaterally, external ears normal and TM abnormal bulging on the right and wth effusion serous bilateral; not erythematous and with no loss of landmarks Face/Nose/Sinus: Normal external nose present, Normal nares present, Normal nasal mucous membranes and turbinates present, normal facial exam and face symmetric Face and sinus: normal facial exam and face symmetric Mouth: Yes Normal oral and palatal mucosa present, Yes lip normal and Yes moist mucous membranes Throat: posterior oropharynx normal and uvula midline Eyes: General: appearance normal, both eyes and all related structures Alignment and Position: alignment normal Pe
[2023-06-05 12:00] VITALS: BP 138/98; PULSE 70; RESP 18; TEMP 36.9; O2SAT 100
== END 2023-06-05 12:44 | disposition home or self-care (01) ==
PROVIDERS: Emergency Provider Nurse Practitioner; PCP Family Medicine
DX: H65.01 Acute serous otitis media, right ear (principal); H69.91 Unspecified Eustachian tube disorder, right ear; J45.909 Unspecified asthma, uncomplicated; K50.90 Crohn's disease, unspecified, without complications
CPT/HCPCS: 99213; G0463

== ENCOUNTER 2023-12-21 12:44 | Emergency (ER) | payer OTHER, SELFPAY ==
--- NOTE | ~2023-12-21 | XR_ITS ---
EXAMINATION: XR chest 2V DATE: 12/21/2023 13:25 INDICATION: Wheezing. Asthma. TECHNIQUE: Frontal and lateral views of the chest were obtained. COMPARISON: Chest 2 views 04/12/2023 FINDINGS: There is no pneumonia, pleural effusion, or pneumothorax. The heart size is normal. IMPRESSION: 1. No acute cardiopulmonary disease. Reviewed, dictated and finalized at location A.
[2023-12-21 12:49] VITALS: BP 138/89; PULSE 100; RESP 14; TEMP 36.5; O2SAT 97
[2023-12-21 13:23] VITALS: PULSE 99; RESP 16
[2023-12-21] MEDS: IPRATROPIUM 0.5 MG/ALBUTEROL SULFATE 2.5 MG AMPUL.NEB 3 ML INHALATION (13:23)
[2023-12-21] MEDS: predniSONE 40 MG, predniSONE 10 MG 50 MG PO (13:30)
[2023-12-21 13:31] VITALS: PULSE 101; RESP 16
--- NOTE | 2023-12-21 13:35 | ED.GENADULT ---
HPI - General Adult General Chief complaint: Upper Respiratory Infection Stated complaint: breathing issues/ allergies Time Seen by Provider: 12/21/23 13:05 History of Present Illness HPI narrative: Patient is a 33-year-old male who presents ER with shortness of breath or wheezing. Ongoing for a couple weeks. It is associated with not wearing a mask while mowing grass. He has been using DuoNebs at home with intermittent relief. No chest pain or chest pressure. No productive cough. Reports he gets mild thrush to his tongue with repeated use of DuoNebs. He reports there is metallic burning taste now. He does not rinse his mouth after using the DuoNeb. Related Data Home Medications Medication Instructions Recorded Confirmed pantoprazole 20 mg tablet,delayed 20 mg PO DAILY 04/21/21 06/05/23 release hyoscyamine sulfate 0.125 mg tablet 0.125 mg PO PRN PRN Cramps 04/23/21 06/05/23 Allergies Allergy/AdvReac Type Severity Reaction Status Date / Time famotidine AdvReac Swelling Verified 12/21/23 13:02 omeprazole AdvReac Nausea and Verified 12/21/23 13:02 Vomiting Review of Systems Review of Systems: All systems reviewed & are unremarkable except as noted in HPI and below Constitutional: Constitutional: Reports no additional constitutional complaints ENT: Reports nasal congestion and Reports sore throat Cardiovascular: Cardiovascular: Reports no additional cardiovascular complaints Respiratory: Respiratory: Reports cough, Reports dyspnea and Reports wheezing Gastrointestinal: Gastrointestinal: Reports no additional gastrointestinal complaints PMFSH Past Medical History Medical History Asthma Crohn's disease Surgical History Surgical History No history of previous surgery Social History Social History Smoking status: Never smoker Alcohol intake: current Alcohol use details: Rarely Substance use: never Gender identity (if verbalized by the patient): Male Exam Narrative: GENERAL: Well-appearing, well-nourished, and in no acute distress. HEAD: Normocephalic, atraumatic. ENT: Mucous membranes moist. Mild pharyngeal erythema. There is adherent material to the tongue med that is dyed red from a juice drink. NECK: Supple. CHEST: Mild expiratory wheezing. No respiratory distress. HEART: Regular rate and rhythm. Normal peripheral pulses. EXTREMITIES: Normal range of motion. No edema. NEURO: Alert and oriented x3. PSYCH: Normal mood and affect. Course Course Emergency Course: DuoNeb x1 here with improvement of wheezing. Discussed oral hygiene after DuoNebs to rinse and spit. Will also place on nystatin swish and swallow. Vital Signs Vital signs: Vital Signs Temperature 97.7 F 12/21/23 12:49 Pulse Rate 100 12/21/23 12:49 Respiratory Rate 14 12/21/23 12:49 Blood Pressure 138/89 12/21/23 12:49 Pulse Oximetry 97 12/21/23 12:49 Temperature 97.7 F 12/21/23 12:49 Pulse Rate 101 H 12/21/23 13:31 Respiratory Rate 16 12/21/23 13:31 Blood Pressure 138/89 12/21/23 12:49 Pulse Oximetry 97 12/21/23 12:49 Oxygen Delivery Room Air 12/21/23 12:55 Medical Decision Making Vital Signs Vital Signs: Vital Signs Temperature 97.7 F 12/21/23 12:49 Pulse Rate 100 12/21/23 12:49 Respiratory Rate 14 12/21/23 12:49 Blood Pressure 138/89 12/21/23 12:49 Pulse Oximetry 97 12/21/23 12:49 Temperature 97.7 F 12/21/23 12:49 Pulse Rate 101 H 12/21/23 13:31 Respiratory Rate 16 12/21/23 13:31 Blood Pressure 138/89 12/21/23 12:49 Pulse Oximetry 97 12/21/23 12:49 Oxygen Delivery Room Air 12/21/23 12:55 Imaging Data Radiologist's impression: ITS Impressions Chest X-Ray 12/21/23 13:28 IMPRESSION: 1. No acute cardiopulmonary disease.
== END 2023-12-21 14:00 | disposition home or self-care (01) ==
LOC: ANHED 13:49
PROVIDERS: Emergency Provider Emergency Medicine; PCP Family Medicine
DX: J45.909 Unspecified asthma, uncomplicated (principal); B37.0 Candidal stomatitis; K50.90 Crohn's disease, unspecified, without complications
CPT/HCPCS: 71046; 99283; J7512

== ENCOUNTER 2024-03-28 02:23 | Emergency (ER) | payer OTHER, SELFPAY ==
--- NOTE | ~2024-03-28 | XR_ITS ---
EXAMINATION: XR hand RT min 3V DATE: 03/28/2024 03:25 INDICATION: Right hand foreign body. TECHNIQUE: 4 views of right hand were obtained. COMPARISON: None. FINDINGS: Bone alignment is normal. No fracture. Joint spaces are normal. There is soft tissue swelli ng of the fifth digit. IMPRESSION: 1. No radiopaque foreign body. Reviewed, dictated and finalized at location A.
[2024-03-28 02:26] VITALS: BP 139/104; PULSE 94; RESP 16; TEMP 36.4; O2SAT 95
--- NOTE | 2024-03-28 03:52 | ED.GENADULT ---
HPI - General Adult General Chief complaint: Skin/Abscess/Foreign Body Stated complaint: R Fifth finger abscess? Time Seen by Provider: 03/28/24 02:51 History of Present Illness HPI narrative: This is a 33-year-old male presenting with a finger abscess. Patient had a callus on his finger that became red in the indicated. Now has become swollen and there is a pus collection. He has no pain with active and passive extension. No systemic signs of illness such as fevers chills nausea or vomiting. Related Data Home Medications Medication Instructions Recorded Confirmed pantoprazole 20 mg tablet,delayed 20 mg PO DAILY 04/21/21 06/05/23 release hyoscyamine sulfate 0.125 mg tablet 0.125 mg PO PRN PRN Cramps 04/23/21 06/05/23 Allergies Allergy/AdvReac Type Severity Reaction Status Date / Time famotidine AdvReac Swelling Verified 03/28/24 02:30 omeprazole AdvReac Nausea and Verified 03/28/24 02:30 Vomiting PMFSH Past Medical History Medical History Asthma Crohn's disease Surgical History Surgical History No history of previous surgery Social History Social History Smoking status: Never smoker Alcohol intake: current Alcohol use details: Rarely Substance use: never Gender identity (if verbalized by the patient): Male Exam Narrative: APPEARANCE: No apparent distress. Head: atraumatic. EYES: EOMI, NOSE: Atraumatic NECK: Trachea midline RESPIRATORY: No increased rate of breathing CARDIOVASCULAR: RRR, ABDOMINAL: Non-distended MUSCULOSKELETAl: Focal exam the 5th digit on right hand showed a fluctuant mass for the flexor side of the proximal phalanx. There is no pain on passive extension. The swelling is not uniform along the entire digit and flexor tendon. No pain on percussion of the flexor tendon. The patient does not hold the finger in passive flexion. There is a visible pus collection superficially in the skin. NEURO: Alert. Moving 4/4 extremities SKIN:: Warm, dry. Normal color PSYCHIATRIC: Normal affect Course Vital Signs Vital signs: Vital Signs Temperature 97.6 F 03/28/24 02:26 Pulse Rate 94 03/28/24 02:26 Respiratory Rate 16 03/28/24 02:26 Blood Pressure 139/104 H 03/28/24 02:26 Pulse Oximetry 95 03/28/24 02:26 Oxygen Delivery Room Air 03/28/24 02:26 Temperature 97.6 F 03/28/24 02:26 Pulse Rate 94 03/28/24 02:26 Respiratory Rate 16 03/28/24 02:26 Blood Pressure 139/104 H 03/28/24 02:26 Pulse Oximetry 95 03/28/24 02:26 Oxygen Delivery Room Air 03/28/24 02:26 Medical Decision Making MDM Narrative Medical decision making narrative: -Course: 33-year-old male presenting with a superficial finger abscess. No kanavel signs to indicate flexor tenosynovitis. Incision and drainage was performed with improvement in pain and expression purulent discharge. Loculations broken up with a hemostat. Patient placed on Bactrim and given follow-up with Hand surgery. Given strict return precautions that if his infection is not improving in the next 1-2 days he needs to see hand specialist or return to emergency department immediately for re-evaluation. -DDX includes but is not limited to: Finger abscess, flexor tenosynovitis Independent interpretation of studies: hand xray negative for fracture -Procedures: Incision and drainage performed of finger abscess on the right 5th digit. Superficial incision made with 11 blade scalpel with return of purulent material. Loculations broken up with hemostat. Wound was dressed and patient was placed in a finger splint to facilitate healing. -Interventions: Bactrim -Shared decision making / Disposition: Discharge -RX Bactrim, Motrin, Tylenol Vital Signs Vital Signs: Vital Signs Temperature 97.6 F 03/28/24 02:26 Pulse Rate 9
[2024-03-28] MEDS: SULFAMETHOXAZOLE/TRIMETHOPRIM 800/160 MG DS TABLET 1 TAB PO (04:04)
[2024-03-28] MEDS: IBUPROFEN 400 MG TABLET 800 MG PO (04:04)
[2024-03-28] MEDS: HYDROcodone/acetaminophen (*CRX) 5-325 MG TABLET 2 TAB PO (04:05)
== END 2024-03-28 04:25 | disposition home or self-care (01) ==
PROVIDERS: Emergency Provider Emergency Medicine; PCP Family Medicine
DX: L02.511 Cutaneous abscess of right hand (principal); J45.909 Unspecified asthma, uncomplicated
CPT/HCPCS: 73130; 99283; A9270

== ENCOUNTER 2024-12-15 23:13 | Emergency (ER) | payer OTHER, SELFPAY ==
--- OUTSIDE RECORDS SUMMARY | 2024-12-15 23:15 | XMS_ITS | Encounter Summary ---
Author Organization [facility] Address [address] [facility] [place] [address] Phone Care Team Providers Care Audiology Doctor Name Role Phone Dandy Harrell MD Primary Care Provider [phone] Fabby Levine APRN, [employer] PRODUCT DEVELOPMENT MANAGER Unavailable Reason for Visit * Reason Comments Medication Refill Encounter Details Date Type Department Care Team (Late st Contact Info) Description 11/11/[address] [facility] Medical Group - Family Medicine [facility] [address] [place] [address] Dandy Harrell MD [address] [place] [address] Medication Refill Social History Tobacco Use Types Packs/Day Years Used Date Smoking Tobacco: Never Smokeless Tobacco: Never Alcohol Use Standard Drinks/Week Comments No 0 (1 standard drink = 0.6 oz pur e alcohol) PHQ-2 Answer Date Recorded Total Score - Questions 1-9 0 03/10 Sexually Active Control Partners Comments Yes Sex and Gender Information Value Date Recorded Sex Assigned at Male 01/13/2024 10:01 AM CDT Legal Sex Male 9:50 PM CDT Gender Identity Male 01/13/2024 10:01 AM CDT Sexual Orientation Straight 01/13/2024 10 :01 AM CDT COVID-19 Exposure Response Date Recorded In the last month, have you been in contact with someone who was confirmed or suspected to have Coronavirus / COVID-19? No / Unsure 10/22/2020 10:33 AM CDT documented as of this encounter Miscellaneous Notes * Telephone Encounter - Reina Liseconstance Miner RN - 11/12/2020 1:56 PM CDT Medication failed the protocol, provider to review and approve the medication order if appropriate. Requested Prescriptions Pending Prescriptions Disp Refills albuterol 108 (90 Base) MCG/ACT Aerosol Solution [Pharmacy Med Name: ALBUTEROL HFA (PROAIR) INHALER] 8.5 Inhaler 1 Sig: TAKE 2 PUFFS BY INHALATION EVERY 4 HOURS NEEDED FOR WHEEZING OR COUGH. Pulmonology: Beta Agonists - Albuterol & Levalbuterol Failed - 11/11/2020 12:06 AM Failed - May refill 2 inhalers, 0 refills one time since last office visit. May refill #50 nebulizer vials, 0 refills for albuterol or #48 vials, 0 refills for Xopenex one time since last office visit. Passed - Valid encounter within last 6 months Past Office Visits Recent Outpatient Visits [address] [facility] Medical [facility] - Family Medicine - Dandy Castillo MD 4 months ago Impacted cerumen of both ears [facility] Medical [facility] - Family [facility] - ParmeleeRut Hillman APN, [employer] PRODUCT DEVELOPMENT MANAGER 6 months ago Chest pain, unspecified type [facility] Medical [facility] Family Medicine Dandy Nguyen MD 6 months ago Folliculitis [facility] Family [facility] Dandy Nguyen MD 7 months ago Uncomplicated asthma, unspecified asthma severity, unspecified whether persistent [facility] Dandy Nguyen MD Upcoming Appointments SCIENTIFIC DIRECTOR - Recent and Past Visits Recent Visits Date Type Provider Dept 08/28/20 Telemedicine Dandy Harrell MD [facility] 07/03/20 Office Visit Rut Anderson APN, B[employer] PRODUCT DEVELOPMENT MANAGER [facility] 05/14/20 Office Visit HarrellDandy tierney MD [facility] 05/01/20 Office Visit Dandy Harrell MD [facility] 03/22/20 Office Visit Dandy Harrell MD [facility] 11/21/19 Telemedicine Dandy Harrell MD [facility] 11/11/19 Telemedicine Dandy Harrell MD [facility] Showing recent visits within past 460 days with a meds authorizing provider and meeting all other requirements Future Appointments No visits were found meeting these conditions. Showing future appointments within next 90 days with a meds authorizing provider and meeting all other requirements Passed - Last BP in normal range BP Readings from Last 1 Encounters: 08/27/20 122/70 documented in this encounter Plan of Treatment Not on file documented as of this encounter Visit Diagnoses Not on filedocumented in this encounter Additional Health Concerns Assessment Noted Time PHQ-9 Depression Total Score: 0 03/22/20 8:00 AM CDT documented as of this encounter Care Teams Audiology Doctor Relationship Specialty Start Date End Date Dandy Harrell MD PCP - General Family Medicine 09/12/19 Fabby Levine APRN, [employer] PRODUCT DEVELOPMENT MANAGER [address] [place] [address] Nurse Practitioner Advanced Practice Nurse 03/06/23 documented as of this encounter
--- OUTSIDE RECORDS SUMMARY | 2024-12-15 23:15 | XMS_ITS | Encounter Summary ---
Author Organization [facility] Address [address] [facility] [place] [address] Phone Care Team Providers Care Machine Iii Coremaker Name Role Phone Dandy Harrell MD Primary Care Provider [phone] Fabby Levine APRN, MUTUAL FUND MANAGER Unavailable Reason for Visit * Reason Comments Medication Refill Encounter Details Date Type Department Care Team (Late st Contact Info) Description 08/21/2021 Refill [facility] Medical Group - Family Medicine [facility] [address] [place] [address] Dandy Harrell MD [address] [place] [address] Medication Refill Social History Tobacco Use Types Packs/Day Years Used Date Smoking Tobacco: Never Smokeless Tobacco: Never Alcohol Use Standard Drinks/Week Comments No 0 (1 standard drink = 0.6 oz pur e alcohol) PHQ-2 Answer Date Recorded Total Score - Questions 1-9 0 12/08 Sexually Active Control Partners Comments Yes Sex [...] have Coronavirus / COVID-19? No / Unsure 08/13/2021 2:52 PM OIL ANALYST documented as of this encounter Miscellaneous Notes * Telephone Encounter - JeanetteJuan Davidelmo Ivy RN - 08/21/2021 3:47 PM CST PRN medication requires review from provider Per nursing clinical judgement, provider to review and approve the medication(s) order(s) if appropriate. Requested Prescriptions Pending Prescriptions Disp Refills albuterol 108 (90 Base) MCG/ACT Aerosol Solution [Pharmacy Med Name: ALBUTEROL HFA (PROAIR) INHALER] 8.5 g 1 Sig: TAKE 2 PUFFS BY INHALATION EVERY 4 HOURS NEEDED FOR WHEEZING OR COUGH. Short Acting Inhaled Beta-Agonists Protocol Passed - 08/21/2021 3:47 PM Passed - Visit with relevant provider in past 12 months or upcoming 90 days Recent Visits Date Type Provider Dept 08/07/21 Office Visit Jose Nelson APRN, DEEPALI [facility] 12/26/20 Office Visit Dandy Harrell MD [facility] 08/28/20 Telemedicine Dandy Harrell MD [facility] [place] Showing recent visits within past 365 days and meeting all other requirements Future Appointments No visits were found meeting these conditions. Showing future appointments within next 90 days and meeting all other requirements Refused Prescriptions Disp Refills ipratropium-albuterol (DUO-NEB) 0.5-2.5 (3) MG/3ML Solution [Pharmacy Med Name: IPRAT-ALBUT 0.5-3(2.5) MG/3 ML] 360 mL 1 Si ML BY NEBULIZATION ROUTE EVERY 6 HOURS NEEDED FOR SHORTNESS OF BREATH. Inhaled Combinations Protocol Passed - 08/21/2021 3:47 PM Passed - Visit with relevant provider in past 12 months or upcoming 90 days Recent Visits Date Type Provider Dept 08/07/21 Office Visit Jose Nelson APRN, DEEPALI [facility] 12/26/20 Office Visit Dandy Harrell MD [facility] 08/28/20 Telemedicine Dandy Harrell MD [facility] [place] Showing recent visits within past 365 days and meeting all other requirements Future Appointments No visits were found meeting these conditions. Showing future appointments within next 90 days and meeting all other requirements Passed - Active short-acting beta agonist prescription ANALYST * Telephone Encounter - Jerica Reid RN - 08/21/2021 3:47 PM CST Disp Refills Start End ipratropium-albuterol (DUO-NEB) 0.5-2.5 (3) MG/3ML Solution 360 mL 5 08/07/2021 Sig - Route: 3 mL by Nebulization route every 6 hours as needed for Shortness of Breath. - Nebulization Sent to pharmacy as: Ipratropium-Albuterol 0.5-2.5 (3) MG/3ML Inhalation Solution (DUO-NEB) Class: E Prescribe E-Prescribing Status: Receipt confirmed by pharmacy (08/07/2021 11:40 AM OIL ANALYST) Order Questions ?? ipratropium-albuterol (DUO-NEB) 0.5-2.5 (3) MG/3ML Solution [[id number]] 1140 Status: Active Ordering user: Jose Nelson APRN, CNP 08/07/21 1140 Authorized by: Jose Nelson APRN, CNP PRN reasons: Shortness of Breath Frequency: Q6H PRN 08/07/21 - Until Discontinued Diagnoses Mild intermittent asthma without complication [J45.20] Associated Diagnoses Mild intermittent asthma without complication Pharmacy [facility] [address] [place] [id number] CARMELITA GURPREET ANALYST documented in this encounter Plan of Treatment Not on file documented as of this encounter Visit Diagnoses Diagnosis Mild intermittent asthma without complication Unspecified asthma documented in this encounter Additional Health Concerns Assessment Noted Time PHQ-9 Depression Total Score: 0 12/27/19 21 4:00 PM CDT documented as of this encounter Care Teams Machine Iii Coremaker Relationship Specialty Start Date End Date Dandy Harrell MD PCP - General Family Medicine 09/12/19 Fabby Levine APRN, MUTUAL FUND MANAGER [address] [place] [address] Nurse Practitioner Advanced Practice Nurse 03/06/23 documented as of this encounter
--- OUTSIDE RECORDS SUMMARY | 2024-12-15 23:15 | XMS_ITS | Encounter Summary ---
Author Organization [facility] Address [address] [facility] [place] [address] Phone Care Team Providers Care Thread Separator Name Role Phone Dandy Harrell MD Primary Care Provider [phone] Fabby Levine APRN, TOWER CRANE OPERATOR Unavailable Reason for Visit * Reason Comments Medication Refill Encounter Details Date Type Department Care Team (Late st Contact Info) Description 12/06/2023 Refill [facility] - Family Medicine [facility] [address] [place] [address] Dandy Harrell MD [address] [place] [address] Medication Refill Social History Tobacco Use Types Packs/Day Years Used Date Smoking Tobacco: Never Smokeless Tobacco: Never Alcohol Use Standard Drinks/Week Comments No 0 (1 standard drink = 0.6 oz pur e alcohol) PHQ-2 Answer Date Recorded Total Score - Questions 1-9 0 12/08 Sexually Active Control Partners Comments Yes Female Sex and Gender Information Value Date Recorded Sex Assigned at Male 01/13/2024 10:01 AM CDT Legal Sex Male 9:50 PM CDT Gender Identity Male 01/13/2024 10:01 AM CDT Sexual Orientation Straight 01/13/2024 10 :01 AM CDT documented as of this encounter Miscellaneous Notes * Telephone Encounter - Jerica Reid RN - 12/07/2023 12:32 PM CDT PRN medication requires review from provider Per nursing clinical judgement, provider to review and approve the medication(s) order(s) if appropriate. Requested Prescriptions Pending Prescriptions Disp Refills ipratropium-albuterol (DUO-NEB) 0.5-2.5 (3) MG/3ML Solution [Pharmacy Med Name: IPRAT-ALBUT 0.5-3(2.5) MG/3 ML] 360 mL 5 Sig: INHALE 1 VIAL VIA NEBULIZER EVERY 6 HOURS NEEDED FOR FOR SHORTNESS OF BREATH Inhaled Combinations Protocol Passed - 12/06/2023 7:29 AM Passed - Visit with relevant provider in past 12 months or upcoming 90 days Recent Visits Date Type Provider Dept 07/10/23 Office Visit Dandy Harrell MD [facility] 04/20/23 Telemedicine Amira Loja APRN, CNP [facility] 04/15/23 Office Visit Amira Loja APRN, CNP [facility] Showing recent visits within past 365 days and meeting all other requirements Future Appointments No visits were found meeting these conditions. Showing future appointments within next 90 days and meeting all other requirements Passed - Active short-acting beta agonist prescription documented in this encounter Plan of Treatment Not on file documented as of this encounter Visit Diagnoses Diagnosis Mild intermittent asthma without complication Unspecified asthma documented in this encounter Additional Health Concerns Assessment Noted Time PHQ-9 Depression Total Score: 0 12/27/19 21 4:00 PM CDT documented as of this encounter Care Teams Thread Separator Relationship Specialty Start Date End Date Dandy Harrell MD PCP - General Family Medicine 09/12/19 Fabby Levine APRN, TOWER CRANE OPERATOR [address] [place] [address] Nurse Practitioner Advanced Practice Nurse 03/06/23 documented as of this encounter
--- OUTSIDE RECORDS SUMMARY | 2024-12-15 23:15 | XMS_ITS | Encounter Summary ---
Author Organization [facility] Address [address] [facility] [place] [address] Phone Care Team Providers Care Photo Checker Name Role Phone Dandy Harrell MD Primary Care Provider Fabby Levine APRN, CRIMINAL ANALYST Unavailable Reason for Visit * Reason Comments Medication Refill Encounter Details Date Type Department Care Team (Late st Contact Info) Description 06/22/2023 Refill [facility] - Gastroenterology - [place] [address] [place] [address] Fabby Levine APRN, CRIMINAL ANALYST [address] [place], [place] [id number] Medication Refill Social History Tobacco Use Types [...] encounter Miscellaneous Notes * Telephone Encounter - Melinda Camara RN - 06/22/2023 10:13 AM PMO PROJECT MANAGER Medication refilled and signed per [facility] chronic medication standing order for pediatric and adult patients. PROJECT MANAGER documented in this encounter Plan of Treatment Not on file documented as of this encounter Visit Diagnoses Diagnosis Other irritable bowel syndrome documented in this encounter Additional Health Concerns Assessment Noted Time PHQ-9 Depression Total Score: 0 12/27/19 21 4:00 PM CDT documented as of this encounter Care Teams Photo Checker Relationship Specialty Start Date End Date Dandy Harrell MD PCP - General Family Medicine 09/12/19 Fabby Levine APRN, CRIMINAL ANALYST [address] [place] [address] Nurse Practitioner Advanced Practice Nurse 03/06/23 documented as of this encounter
--- OUTSIDE RECORDS SUMMARY | 2024-12-15 23:15 | XMS_ITS | Encounter Summary ---
Author Organization [facility] Address [address] [facility] [place] [address] Phone Care Team Providers Care Baggage Screener Name Role Phone Dandy Harrell MD Primary Care Provider [phone] Fabby Levine APRN, PAD EXTRACTION TENDER Unavailable Reason for Visit * Reason Comments Medication Refill Encounter Details Date Type Department Care Team (Late st Contact Info) Description 06/05/2020 Refill [facility] - Family Medicine [facility] [address] [place] [address] Dandy Harrell MD [address] [place] [address] Medication Refill Social History Tobacco Use Types [...] have Coronavirus / COVID-19? No / Unsure 05/14/2020 8:38 AM CDT documented as of this encounter Miscellaneous Notes * Telephone Encounter - Monika Rincon RN - 06/06/2020 10:30 AM CDT Requested Prescriptions Pending Prescriptions Disp Refills famotidine (PEPCID) 20 MG Tablet [Pharmacy Med Name: FAMOTIDINE 20 MG TABLET] 60 Tab 0 Sig: TAKE 1 TABLET BY MOUTH TWICE A DAY Gastroenterology: Antiulcer - H2 Antagonists Passed - 06/05/2020 12:02 AM Passed - Valid encounter within last 12 months Past Office Visits Recent Outpatient Visits 3 weeks ago Chest pain, unspecified type [facility] - Family Medicine - Dandy Castillo MD 1 month ago Folliculitis [facility] Family Medicine - Dnady Castillo MD 2 months ago Uncomplicated asthma, unspecified asthma severity, unspecified whether persistent [facility] - Family Medicine - Dandy Castillo MD 6 months ago Irritable bowel syndrome with diarrhea [facility] Medical [facility] - Family Medicine Dandy Nguyen MD 6 months ago Diarrhea, unspecified type [facility] Medical [facility] Family Medicine Dandy Nguyen MD Upcoming Appointments Future Appointments In 1 month Chayo Dominguez January, PAC [facility] Medical [facility] - Gastroenterology M[facility] In [address], [facility] SKI LIFT MECHANIC - Recent and Past Visits Recent Visits Date Type Provider Dept 05/14/20 Office Visit Dandy Harrell MD [facility] 05/01/20 Office Visit Dandy Harrell MD [facility] 03/22/20 Office Visit Dandy Harrell MD [facility] 11/21/19 Telemedicine Dandy Harrell MD [facility] 11/11/19 Telemedicine Dandy Harrell MD [facility] 07/21/19 Office Visit Dandy Harrell MD [facility] [place] 07/13/19 Office Visit Ariadna Arrington PAC [facility] Showing recent visits within past 460 days with a meds authorizing provider and meeting all other requirements Future Appointments No visits were found meeting these conditions. Showing future appointments within next 90 days with a meds authorizing provider and meeting all other requirements documented in this encounter Plan of Treatment Not on file documented as of this encounter Visit Diagnoses Not on filedocumented in this encounter Additional Health Concerns Assessment Noted Time PHQ-9 Depression Total Score: 0 03/22/20 20 8:00 AM CDT documented as of this encounter Care Teams Baggage Screener Relationship Specialty Start Date End Date Dandy Harrell MD PCP - General Family Medicine 09/12/19 Fabby Levine APRN, PAD EXTRACTION TENDER [address] [place] [address] Nurse Practitioner Advanced Practice Nurse 03/06/23 documented as of this encounter
--- OUTSIDE RECORDS SUMMARY | 2024-12-15 23:15 | XMS_ITS | Encounter Summary ---
Author Organization [facility] Address [address] [facility] [place] [address] Phone Care Team Providers Care Cannery Tender Engineer Name Role Phone Dandy Harrell MD Primary Care Provider [phone] Fabby Levine APRN, PIPE MAKER Unavailable Reason for Visit * Reason Onset Date Comments Anxiety 08/27/2021 Encounter Details Date Type Department Care Team (Late st Contact Info) Description 08/27/2021 Nurse Triage [facility] [address] [place] [address] Dandy Harrell MD [address] [place] [address] Anxiety Social History Tobacco Use Types Packs/Day Years [...] COVID-19? No / Unsure 08/13/2021 2:52 PM COST MANAGER documented as of this encounter Miscellaneous Notes * Telephone Encounter - Rosa Lei - 08/27/2021 2:24 PM CST Reason for Disposition ??? Symptoms interfere with work or school Protocols used: ANXIETY AND PANIC ATTACK-A-OH S: Anxiety B: Patient calling to schedule OV for his anxiety. Says he was recently hospitalized in [place] and was given a medication (he is unsure what it was) for his anxiety/panic attack, and says he needs to follow up with that because he has not been right ever since. Says during the episodes he becomes flushed and dizzy. A: Negative for any heart palpitations, CP, SOB, diaphoresis. Denies SI/HI. Says episodes seem to be worst first thing in the morning. R: EOV scheduled with MIGNON Bettencourt, for tomorrow per patient's request. Appears he also has a hospital follow up visit for this with PCP but not until 09/03, and patient does not wish to wait that long. MANAGER MANAGER documented in this encounter Plan of Treatment Not on file documented as of this encounter Visit Diagnoses Not on filedocumented in this encounter Additional Health Concerns Assessment Noted Time PHQ-9 Depression Total Score: 0 12/27/19 21 4:00 PM CDT documented as of this encounter Care Teams Cannery Tender Engineer Relationship Specialty Start Date End Date Dandy Harrell MD PCP - General Family Medicine 09/12/19 Fabby Levine APRN, DEEPALI [address] [place] [address] Nurse Practitioner Advanced Practice Nurse 03/06/23 documented as of this encounter
--- OUTSIDE RECORDS SUMMARY | 2024-12-15 23:15 | XMS_ITS | Clinical Summary ---
Author Organization [facility] Address [address] [place] [address] Care Team Providers Care Senior Resident Care Director Name Role Phone Dandy Harrell MD Primary Care Provider [phone] Allergies No known active allergies Medications fluticasone (FLOVENT HFA) 110 mcg/actuation inhaler inhale 1 puff by inhalation route 2 times every day 1 Inhaler 0 5 Active Additional Information Patient not taking.Reported on 01/16/2017 albuterol HFA (PROAIR HFA) 90 mcg/actuation inhalerIndicatio ns:Mild intermittent asthma without complication Inhale 2 puffs every 4 (four) hours as needed for wheezing or shortness of breath. 8.5 g 8 Active umeclidinium-roshan anterol (ANORO ELLIPTA) 62.5-25 mcg/actuation blister with device Inhale 1 puff daily. 60 each 6 8 Active ipratropium-albu terol (DUO-NEB) 0.5-2.5 mg/3 mL nebulizer solution INHALE 1 VIAL BY NEBULIZATION ROUTE 4 TIMES DAILY FOR 30 DAYS 360 mL 8 Active Active Problems Problem Noted Date Diagnosed Date Moderate persistent asthma with acute exacerbati on 08/13/2017 Assessment & Plan (08/13/2017 12:57 PM PAIRING MACHINE OPERATOR): Patient has been symptomatic for last 4 days. The last 8 days we have had temperatures in the single digits is not been above 20 degrees in the past 10 days. 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 He ran out of his albuterol handheld inhaler over week ago. Take patient's wheezing and coughing through the night. Peak flow today was 230 out of a possible 630. No accessory muscle use talk in full sentences it diet use wheezing. Nebulizer treatment was given peak flow post increased to 260. I spent considerable time educating this patient again the need for him to never run out of her inhaler during winter time since he has is sensitive to asthma symptoms and cold air. At this time I think he should take the next 2 days off work to status cold air and reduce work load on his lungs. His asthma is secondary to airway resistance. Patient is given prednisone 40 milligrams a day for 10 days a samples Spiriva Respimat once daily. 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 Few hours later he began to wheeze and have considerable coughing. This continues as of today he is improving. Plans start this patient on albuterol HFA gave him a sample Breo. Patient has been on albuterol in the past and knows how to use it. Start the use Breo Irritable bowel syndrome without diarrhea 2016 Assessment & Plan (03/28/2017 5:42 PM CDT): Patient's symptoms are pretty much resolved dietary discretion. Assessment & Plan (01/20/2017 5:50 PM CDT): Patient complains of crampy abdominal pain with for times a week 3-5 days. Pain comes on about an hour after he lower abdominal discomfort and bloating of gaseousness. No heartburn no diarrhea no constipation. Patient's diet and includes a lot of vegetables and foods that cause a lot of gas . With my impression he has a very mild case of IBS. Gave him a list of foods that cause a lot of gas in the may be more selective in his diet. Back pain 01/20/2017 Surgical History Surgery Date Site/Laterality Comments APPENDECTOMY 08/10/2011 - 08/09/2012 Medical History Medical History Date Comments Irritable bowel syndrome Asthma Social History Tobacco Use Types Packs/Day Years Used Date Smoking Tobacco: Former Smokeless Tobacco: Never Alcohol Use Standard Drinks/Week Comments Not Currently 0 (1 standard drink = 0.6 oz pur e alcohol) Personal Safety Answer Date Recorded Getting School Help Needed Not on file 08/17 Sex and Gender Information Value Date Recorded Sex Assigned at Not on file Legal Sex Male 12:00 PM PAIRING MACHINE OPERATOR Gender Identity Male 05/06/2021 7:26 AM CDT Sexual Orientation Straight 05/06/2021 7: 26 AM CDT Obstetrics History Last Filed Vital Signs Vital Sign Reading Time Taken Comments Blood Pressure 152/97 04/20/2020 12:32 PM CDT Pulse 68 04/20/2020 12:32 PM CDT Temperature 36.4 C (97.6 F) 04/20/2020 12:32 PM CDT Respiratory Rate 14 04/20/2020 12:32 PM CDT Oxygen Saturation 100% 04/20/2020 12:32 PM CDT Inhaled Oxygen Concentration - - Weight 74.2 kg (163 lb 9.3 oz) 04/20/2020 12:32 PM CDT Height 180.3 cm (5' 11 ) 04/06/2019 6:01 PM CDT Body Mass Index 22.81 04/06/2019 6:01 PM CDT Plan of Treatment Not on file [place] [address] [employer] [facility] A[employer]NA [facility] Care Teams Senior Resident Care Director Relationship Specialty Start Date End Date Dandy Harrell MD [address] [address] PCP - General 03/03/20
--- OUTSIDE RECORDS SUMMARY | 2024-12-15 23:15 | XMS_ITS | Encounter Summary ---
Author Organization [facility] Address [address] [facility] [place] [address] Phone Care Team Providers Care Petal Shaper Hand Name Role Phone Dandy Harrell MD Primary Care Provider [phone] Fabby Levine APRN, DIRECTOR OF ANALYTICAL DEVELOPMENT Unavailable Reason for Visit * Reason Comments Medication Refill Encounter Details Date Type Department Care Team (Late st Contact Info) Description 02/25/2021 Refill [facility] Medical Group - Family Medicine [facility] [address] [place] [address] Dandy Harrell MD [address] [place] [address] Medication Refill Social History Tobacco Use Types [...] encounter Miscellaneous Notes * Telephone Encounter - Jreica Reid RN - 02/26/2021 8:35 AM CDT PRN medication requires review from provider Per nursing clinical judgement, provider to review and approve the medication(s) order(s) if appropriate. Requested Prescriptions Pending Prescriptions Disp Refills ipratropium-albuterol (DUO-NEB) 0.5-2.5 (3) MG/3ML Solution [Pharmacy Med Name: IPRAT-ALBUT 0.5-3(2.5) MG/3 ML] 360 mL 1 Si ML BY NEBULIZATION ROUTE EVERY 6 HOURS NEEDED FOR SHORTNESS OF BREATH. Inhaled Combinations Protocol Passed - 02/25/2021 3:14 PM Passed - Visit with relevant provider in past 12 months or upcoming 90 days Recent Visits Date Type Provider Dept 12/26/20 Office Visit Dandy Harrell MD [facility] 08/28/20 Telemedicine Dandy Harrell MD [facility] 07/03/20 Office Visit Rut Anderson APN, DIRECTOR OF ANALYTICAL DEVELOPMENT [facility] [place] 05/14/20 Office Visit Dandy Harrell MD [facility] 05/01/20 Office Visit Dandy Harrell MD [facility] 03/22/20 Office Visit Dandy Harrell MD [facility] [place] Showing recent visits within past 365 days and meeting all other requirements Future Appointments No visits were found meeting these conditions. Showing future appointments within next 90 days and meeting all other requirements Passed - Active short-acting beta agonist prescription hyoscyamine (ANASPAZ, LEVSIN) 0.125 MG Tablet [Pharmacy Med Name: HYOSCYAMINE SULF 0.125 MG TAB] 100 Tablet 3 Sig: TAKE ONE TABLET BY MOUTH EVERY 4 HOURS NEEDED FOR CRAMPING OR DIARRHEA Antispasmodic Agents Protocol Passed - 02/25/2021 3:14 PM Passed - Visit with relevant provider in past 12 months or upcoming 90 days Recent Visits Date Type Provider Dept 12/26/20 Office Visit Dandy Harrell MD [facility] [place] 08/28/20 Telemedicine Dandy Harrell MD [facility] [place] 07/03/20 Office Visit Rut Anderson APN, DEEPALI [facility] [place] 05/14/20 Office Visit Dandy Harrell MD [facility] [place] 05/01/20 Office Visit Dandy Harrell MD [facility] [place] 03/22/20 Office Visit Dandy Harrell MD [facility] [place] Showing recent visits within past 365 days and meeting all other requirements Future Appointments No visits were found meeting these conditions. Showing future appointments within next 90 days and meeting all other requirements * Telephone Encounter - Katherine Rock RN - 02/25/2021 3:14 PM CDT Calling to request refill. Warm transferred to [facility] in Med Management. documented in this encounter Plan of Treatment Not on file documented as of this encounter Visit Diagnoses Diagnosis Mild intermittent asthma without complication Unspecified asthma Other irritable bowel syndrome documented in this encounter Additional Health Concerns Assessment Noted Time PHQ-9 Depression Total Score: 0 12/27/19 4:00 PM CDT documented as of this encounter Care Teams Petal Shaper Hand Relationship Specialty Start Date End Date Dandy Harrell MD PCP - General Family Medicine 09/12/19 Fabby Levine APRN, DIRECTOR OF ANALYTICAL DEVELOPMENT [address] [place] [address] Nurse Practitioner Advanced Practice Nurse 03/06/23 documented as of this encounter
--- OUTSIDE RECORDS SUMMARY | 2024-12-15 23:15 | XMS_ITS | Encounter Summary ---
Author Organization [facility] Address [address] [facility] [place] [address] Phone Care Team Providers Care Baker Name Role Phone Dandy Harrell MD Primary Care Provider [phone] Fabby Levine APRN, MACHINE SIGN WRITER Unavailable Reason for Visit * Reason Comments Medication Refill Encounter Details Date Type Department Care Team (Late st Contact Info) Description 01/12/2023 Refill [facility] - Family Medicine [facility] [address] [place] [address] Dandy Harrell MD [address] [place] [address] Medication Refill Social History Tobacco Use Types [...] AM CDT documented as of this encounter Plan of Treatment Not on file documented as of this encounter Visit Diagnoses Not on filedocumented in this encounter Additional Health Concerns Assessment Noted Time PHQ-9 Depression Total Score: 0 12/27/19 21 4:00 PM CDT documented as of this encounter Care Teams Baker Relationship Specialty Start Date End Date Dandy Harrell MD PCP - General Family Medicine 09/12/19 Fabby Levine APRN, MACHINE SIGN WRITER [address] [place] [address] Nurse Practitioner Advanced Practice Nurse 03/06/23 documented as of this encounter
--- OUTSIDE RECORDS SUMMARY | 2024-12-15 23:15 | XMS_ITS | Encounter Summary ---
Author Organization [facility] Address [address] [facility] [place] [address] Phone Care Team Providers Care Striper Machine Name Role Phone Dandy Harrell MD Primary Care Provider Fabby Levine APRN, GM/SVP GLOBAL PUBLISHER BUSINESS Unavailable Reason for Visit * Reason Comments Medication Refill Encounter Details Date Type Department Care Team (Late st Contact Info) Description 09/29/2022 Refill [facility] - Family Medicine [facility] [address] [place] [address] Dandy Harrell MD [address] [place] [address] Medication Refill Social History Tobacco Use Types [...] encounter Miscellaneous Notes * Telephone Encounter - Emerald Silva RMA - 10/01/2022 8:13 AM TAPING FOREMAN scheduled NG FOREMAN * Telephone Encounter - Penelope Galeana RN - 09/29/2022 9:47 AM TAPING FOREMAN Needs appointment. Medication failed the protocol, provider to review and approve the medication order if appropriate. Requested Prescriptions Pending Prescriptions Disp Refills pantoprazole (PROTONIX) 20 MG Tablet Delayed Response [Pharmacy Med Name: PANTOPRAZOLE SOD DR 20 MGTAB] 30 Tablet 0 Sig: TAKE 1 TABLET BY MOUTH DAILY Proton Pump Inhibitors Protocol Failed - 09/29/2022 12:41 AM Failed - Visit with relevant provider in past 12 months or upcoming 90 days Recent Visits No visits were found meeting these conditions. Showing recent visits within past 365 days and meeting all other requirements Future Appointments No visits were found meeting these conditions. Showing future appointments within next 90 days and meeting all other requirements NG FOREMAN documented in this encounter Plan of Treatment Not on file documented as of this encounter Visit Diagnoses Diagnosis Gastroesophageal reflux disease without esophagitis Esophageal reflux documented in this encounter Additional Health Concerns Assessment Noted Time PHQ-9 Depression Total Score: 0 12/27/19 21 4:00 PM CDT documented as of this encounter Care Teams Striper Machine Relationship Specialty Start Date End Date Dandy Harrell MD PCP - General Family Medicine 09/12/19 Fabby Levine APRN, GM/SVP GLOBAL PUBLISHER BUSINESS [address] [place] [address] Nurse Practitioner Advanced Practice Nurse 03/06/23 documented as of this encounter
--- OUTSIDE RECORDS SUMMARY | 2024-12-15 23:15 | XMS_ITS | Referral Summary ---
Author Organization [facility] Address [address] [place] [address] Care Team Providers Care Clerical Administrative Assistant Name Role Phone Dandy Harrell MD Primary Care Provider [phone] Allergies No known active allergies Medications fluticasone [...] 08/13/2017 Assessment & Plan (08/13/2017 12:57 PM PRECISION MILLWRIGHT): Patient has been symptomatic for last 4 [...] CDT): Patient wor analog coughing ks in [employer] inform me he did not wears [...] selective in his diet. Back pain 01/20/2017 Social History Tobacco Use Types Packs/Day Years Used Date Smoking Tobacco: Former Smokeless Tobacco: Never Alcohol Use Standard Drinks/Week Comments Not Currently 0 (1 standard drink = 0.6 oz pur e alcohol) Personal Safety Answer Date Recorded Getting School Help Needed Not on file 08/17 Sex and Gender Information Value Date Recorded Sex Assigned at Not on file Legal Sex Male 12:00 PM PRECISION MILLWRIGHT Gender Identity Male 05/06/2021 7:26 AM CDT Sexual Orientation Straight 05/06/2021 7: 26 AM CDT Last Filed Vital Signs Vital Sign Reading [...] Plan of Treatment [place] [address] [facility] AETNA BETTER [facility] AETNA BETTER [facility] [place] [address] Care Teams Clerical Administrative Assistant Relationship Specialty Start Date End Date Dandy Harrell MD [address] [facility] [address] [address] PCP - General 03/03/20
--- OUTSIDE RECORDS SUMMARY | 2024-12-15 23:15 | XMS_ITS | Encounter Summary ---
Author Organization [facility] Address [address] [facility] [place] [address] Phone Care Team Providers Care Back Winder Name Role Phone Dandy aHrrell MD Primary Care Provider [phone] Fabby Levine APRN, EMAIL MARKETING ASSISTANT Unavailable Reason for Visit * Reason Comments Medication Refill Encounter Details Date Type Department Care Team (Late st Contact Info) Description 12/01/2022 Refill [facility] Medical Group - Family Medicine [facility] [address] [place] [address] Dandy Harrell MD [address] [place] [address] Medication Refill Social History Tobacco Use Types [...] Telephone Encounter - Jerica Reid RN - 12/01/2022 2:07 PM CDT Medication failed the protocol, provider to review and approve the medication order if appropriate. Requested Prescriptions Pending Prescriptions Disp Refills chlorhexidine (PERIDEX) 0.12 % Solution [Pharmacy Med Name: CHLORHEXIDINE 0.12% RINSE] 473 mL 3 Sig: SWISH AND SPIT 15 ML BY MOUTH TWICE DAILY Not Delegated - Off Protocol Failed - 12/01/2022 1:55 PM Failed - This refill cannot be delegated Passed - Visit with relevant provider in past 12 months or upcoming 90 days Recent Visits Date Type Provider Dept 10/06/22 Office Visit Jose Nelson APRN, DEEPALI [facility] Showing recent visits within past 365 days and meeting all other requirements Future Appointments No visits were found meeting these conditions. Showing future appointments within next 90 days and meeting all other requirements documented in this encounter Plan of Treatment Not on file documented as of this encounter Visit Diagnoses Diagnosis Chronic dental pain Unspecified disorder of the teeth and supporting structures documented in this encounter Additional Health Concerns Assessment Noted Time PHQ-9 Depression Total Score: 0 12/27/19 21 4:00 PM CDT documented as of this encounter Care Teams Back Winder Relationship Specialty Start Date End Date Dandy Harrell MD PCP - General Family Medicine 09/12/19 Fabby Levine APRN, EMAIL MARKETING ASSISTANT [address] [place] [address] Nurse Practitioner Advanced Practice Nurse 03/06/23 documented as of this encounter
--- OUTSIDE RECORDS SUMMARY | 2024-12-15 23:15 | XMS_ITS | Encounter Summary ---
Author Organization [facility] Address [address] [place] [address] Phone Care Team Providers Care Drop Pit Worker Name Role Phone Dandy Harrell MD Primary Care Provider [phone] Fabby Levine APRN, SPOTLIGHT OPERATOR Unavailable Reason for Visit * Reason Comments Medication Refill Encounter Details Date Type Department Care Team (Late st Contact Info) Description 04/24/2024 Refill [facility] Medical Group - Family Medicine [facility] [address] [place] [address] Ariadna Arrington, PAC [address] [place] [address] Medication Refill Social History Tobacco Use Types [...] Telephone Encounter - Jerica Reid RN - 04/25/2024 11:10 AM CDT Needs KAYDEN * Telephone Encounter - Jerica Reid RN - 04/25/2024 11:09 AM CDT Medication warning Per nursing clinical judgement, provider to review and approve the medication(s) order(s) if appropriate. Requested Prescriptions Pending Prescriptions Disp Refills pantoprazole (PROTONIX) 40 MG Tablet Delayed Response [Pharmacy Med Name: PANTOPRAZOLE SOD DR 40 MGTAB] 30 Tablet 2 Sig: TAKE 1 TABLET BY MOUTH EVERY DAY Proton Pump Inhibitors Protocol Passed - 04/24/2024 7:41 AM Passed - Visit with relevant provider in past 12 months or upcoming 90 days Recent Visits Date Type Provider Dept 01/13/24 Office Visit Ariadna Arrington PAC Oslinette Galeana 07/10/23 Office Visit Dandy Harrell MD [facility] Showing recent visits within past 365 days [...] documented as of this encounter Care Teams Drop Pit Worker Relationship Specialty Start Date End Date Dandy Harrell MD PCP - General Family Medicine 09/12/19 Fabby Levine APRN, SPOTLIGHT OPERATOR [address] [place] [address] Nurse Practitioner Advanced Practice Nurse 03/06/23 documented as of this encounter
--- OUTSIDE RECORDS SUMMARY | 2024-12-15 23:15 | XMS_ITS | Clinical Summary ---
Author Organization [facility] Address [address] [place] [address] Phone Care Team Providers Care Induction Brazer Name Role Phone Dandy Harrell MD Primary Care Provider [phone] Fabby Levine APRN, STITCHDOWN THREAD LASTER Unavailable Allergies Active Allergy Reactions Criticality Noted Date Comments Dicyclomine Other (see Comments) 01/13/2024 Diarrhea Doxycycline Unknown 01/13/2024 Famotidine Swelling 04/05/2021 Swelling in lips and fingers Omeprazole Swelling Medium 08/27/2020 Medications Acetaminophen Extra Strength 500 MG Tablet TAKE 1 TABLET EVERY 8 HOURS FOR 10 DAYS 3 Active hyoscyamine (ANASPAZ, LEVSIN) 0.125 MG TabletIndications :Other irritable bowel syndrome Take 1 Tablet by mouth every 4 hours as needed for Cramping. 360 Tablet 1 4 Active nystatin (MYCOSTATIN) 003946 UNIT/ML Suspension TAKE 5 ML BY MOUTH 4 TIMES DAILY, SWISH AND SPIT 4 Active chlorhexidine (PERIDEX) 0.12 % SolutionIndicatio ns:Chronic dental pain 15 mL by Swish & Spit route 2 times daily. 473 mL 3 4 Active albuterol 108 (90 Base) MCG/ACT Aerosol SolutionIndicatio ns:Mild intermittent asthma without complication take 2 Puffs by inhalation every 4 hours as needed for Wheezing or Cough. 8.5 g 1 4 Active azelastine (ASTELIN) 0.1 % Solution 2 Sprays by Nasal route 2 times daily. Use in each nostril as directed 30 mL 3 4 Active pantoprazole (PROTONIX) 40 MG Tablet Delayed ResponseIndicatio ns:Gastroesophage al reflux disease without esophagitis TAKE 1 TABLET BY MOUTH EVERY DAY 30 Tablet 5 4 Active ipratropium-albut crystal (DUO-NEB) 0.5-2.5 (3) MG/3ML SolutionIndicatio ns:Mild intermittent asthma without complication INHALE 1 VIAL VIA NEBULIZER EVERY 6 HOURS NEEDED FOR FOR SHORTNESS OF BREATH 360 mL 5 5 Active montelukast (SINGULAIR) 10 MG Tablet TAKE 1 TABLET BY MOUTH EVERY DAY IN THE EVENING 90 Tablet 1 5 Active Active Problems Problem Noted Date Diagnosed Date Gastroesophageal reflux disease without esophagi tis 05/01/2020 Nodule of lower lobe of left lung 04/17/2020 Uncomplicated asthma 09/20/2019 IBS (irritable bowel syndrome) Resolved Problems Problem Noted Date Diagnosed Date Resolved Date Severe persistent asthma wit h status asthmaticus 03/13/2020 03/18/2020 Irritable bowel syndrome with constipation 03/13/2020 03/18/2020 Diarrhea 09/20/2019 03/22/2020 Abdominal pain 09/20/2019 03/22/2020 Moderate persistent asthma w ith acute exacerbation 08/13/2017 01/07/2021 Overview (12/26/2020): Last Assessment & Plan: Patient has been symptomatic for last 4 [...] days a samples Spiriva Respimat once daily. Immunizations Immunization Administration Dates Next Due Influenza, Injectable, Quadrivalent 09/09/2017 Tuberculin Skin Test; Purifi ed Protein Derivative Solutiol 09/09/2017 Family History Medical History Relation Name Comments Crohn's Disease Father ? Diabetes Father Hypertension Father Cancer Mother bladder Diabetes Mother Hypertension Mother Relation Name Status Comments Father Alive Mother Alive Sister Alive Social History Tobacco Use Types Packs/Day Years Used Date Smoking Tobacco: Never Smokeless Tobacco: Never Tobacco Cessation:Counseling Given: Not Answered Alcohol Use Standard Drinks/Week Comments No 0 [...] Orientation Straight 01/13/2024 10 :01 AM CDT Last Filed Vital Signs Vital Sign Reading Time Taken Comments Blood Pressure 128/86 01/13/2024 9:02 AM CDT Pulse 87 01/13/2024 9:02 AM CDT Temperature 36.7 C (98 F) 01/13/2024 9:02 AM CDT Respiratory Rate 16 07/10/2023 2:08 PM SENIOR TAX SPECIALIST Oxygen Saturation 99% 01/13/2024 9:02 AM CDT Inhaled Oxygen Concentration - - Weight 80.7 kg (178 lb) 01/13/2024 9:02 AM CDT Height 180.3 cm (5' 11 ) 01/13/2024 9:02 AM CDT Body Mass Index 24.83 01/13/2024 9:02 AM CDT Plan of Treatment Health Maintenance Due Date Last Done Comments Hepatitis C Virus (HCV) Screening 1990 TdaP Immunization 1990 Hepatitis B Immunization (1 of 3 - 19+ 3-dose series) 2009 Pneumococcal Immunization Co mbined (1 of 2 - PCV) 2009 Influenza Immunization (#1) 2024 09/09/2017 SARS-COV-2 Immunization ( - 2023-25 season) 2024 Respiratory Syncytial Virus (RSV) Immunization (Adult) (1 - 1-dose 75+ series) 2065 Meningococcal Immunization (ACWY) Aged Out No longer eligible based on patient's age to complete this topic Rotavirus Immunization Aged Out No lo nger eligible based on patient's age to complete this topic Insurance MEDICAID AETNA BETTER HEALTH Advance Directives * Full Code (Latest Code Status on File) Date Activated Date Inactivated Comments 03/13/2020 4:14 PM 03/18/2020 4:48 PM CPR-Full Treat ment: FULL ARREST: Attempt Resuscitation/CPR wit intubation and mechanical ventilation. PRE-ARREST: Use entire range of life support measures to stabilize the patient. Care Teams Induction Brazer Relationship Specialty Start Date End Date Dandy Harrell MD PCP - General Family Medicine 09/12/19 Fabby Levine, MANAGER UNIX, STITCHDOWN THREAD LASTER [address] [place] [address] Nurse Practitioner Advanced Practice Nurse 03/06/23
--- OUTSIDE RECORDS SUMMARY | 2024-12-15 23:15 | XMS_ITS | Encounter Summary ---
Author Organization [facility] Address [address] [facility] [place] [address] Phone Care Team Providers Care Primary Montessori Teacher Name Role Phone Dandy Harrell MD Primary Care Provider [phone] Fabby Levine APRN, MACHINE BUNCH MAKER Unavailable Reason for Visit * Reason Comments Medication Refill Encounter Details Date Type Department Care Team (Late st Contact Info) Description 02/06/2023 Refill [facility] Medical Group - Gastroenterology - [place] [address] [place] [address] Chayo Dominguez Kathia, PAC [address] [place] [address] Medication Refill Social History Tobacco Use Types [...] Telephone Encounter - Melinda Camara RN - 02/06/2023 10:17 AM CDT Pharmacy requesting refill of: Requested Prescriptions Pending Prescriptions Disp Refills ??? hyoscyamine (ANASPAZ, LEVSIN) 0.125 MG Tablet [Pharmacy Med Name: HYOSCYAMINE SULF 0.125 MG TAB] 120 Tablet 5 Sig: TAKE 1 TABLET BY MOUTH EVERY 4 HOURS NEEDED FOR CRAMPING. Last fill: 07/08/2022 Patients last OV with GI: 08/13/2021 Next Office Visit with GI: None scheduled. Spoke with patient. He is down to 1 pill and is needing a refill on levsin. appt scheduled for 03/06/2023. Order pended, please review and approve due to previous provider is no longer with office. documented in this encounter Plan of Treatment Not on file documented as of this encounter Visit Diagnoses Diagnosis Other irritable bowel syndrome documented in this encounter Additional Health Concerns Assessment Noted Time PHQ-9 Depression Total Score: 0 12/27/19 21 4:00 PM CDT documented as of this encounter Care Teams Primary Montessori Teacher Relationship Specialty Start Date End Date Dandy Harrell MD PCP - General Family Medicine 09/12/19 Fabby Levine APRN, MACHINE BUNCH MAKER [address] [place] [address] Nurse Practitioner Advanced Practice Nurse 03/06/23 documented as of this encounter
--- OUTSIDE RECORDS SUMMARY | 2024-12-15 23:15 | XMS_ITS | Encounter Summary ---
Author Organization [facility] Address [address] [facility] [place] [address] Phone Care Team Providers Care Icing Mixer Name Role Phone Dandy Harrell MD Primary Care Provider Fabby Levine APRN, SPIKE MAKER Unavailable Reason for Visit * Reason Comments Medication Refill Encounter Details Date Type Department Care Team (Late st Contact Info) Description 11/25/2023 Refill [facility] Medical Group - Gastroenterology - [place] [address] [place] [address] Fabby Levine APRN, SPIKE MAKER [address] [place] [address] Medication Refill Social History Tobacco Use Types [...] Telephone Encounter - Melinda Camara RN - 11/26/2023 8:35 AM CDT Medication refilled and signed per [facility] chronic medication standing order for pediatric and adult patients. documented in this encounter Plan of Treatment Not on file documented as of this encounter Visit Diagnoses Diagnosis Other irritable bowel syndrome documented in this encounter Additional Health Concerns Assessment Noted Time PHQ-9 Depression Total Score: 0 12/27/19 21 4:00 PM CDT documented as of this encounter Care Teams Icing Mixer Relationship Specialty Start Date End Date Dandy Harrell MD PCP - General Family Medicine 09/12/19 Fabby Levine APRN, SPIKE MAKER [address] [place] [address] Nurse Practitioner Advanced Practice Nurse 03/06/23 documented as of this encounter
[2024-12-15 23:16] VITALS: BP 145/90; PULSE 84; RESP 20; TEMP 36.8; O2SAT 94
[2024-12-16] VITALS (9 sets, daily range): BP systolic 130–144; BP diastolic 97–105; PULSE 73–94; RESP 12–22; O2SAT 94–100
[2024-12-16] MEDS: predniSONE 20 MG TABLET 60 MG PO (01:12)
[2024-12-16] MEDS: IPRATROPIUM 0.5 MG/ALBUTEROL SULFATE 2.5 MG AMPUL.NEB 3 ML INHALATION (01:13)
--- OUTSIDE RECORDS SUMMARY | 2024-12-16 01:43 | XMS_ITS | Encounter Summary ---
Author Organization [facility] Address [address] [place] [address] Phone Care Team Providers Care Electrical Design Technologist Name Role Phone Dandy Harrell MD Primary Care Provider [phone] Fabby Levine APRN, MARKETING DEVELOPMENT REPRESENTATIVE Unavailable Reason for Visit * Reason Comments Medication Refill Encounter Details Date Type Department Care Team (Late st Contact Info) Description 04/24/2024 Refill [facility] Medical Group - Family Medicine [facility] [address] [place] [address] Ariadna Arrington, PAC [address] [place] [address] Medication Refill Social History Tobacco Use Types [...] Galeana 07/10/23 Office Visit Dandy Harrell MD [facility] Showing recent visits within past 365 [...] documented as of this encounter Care Teams Electrical Design Technologist Relationship Specialty Start Date End Date Dandy Harrell MD PCP - General Family Medicine 09/12/19 Fabby Levine APRN, MARKETING DEVELOPMENT REPRESENTATIVE [address] [place] [address] Nurse Practitioner Advanced Practice Nurse 03/06/23 documented as of this encounter
--- OUTSIDE RECORDS SUMMARY | 2024-12-16 01:43 | XMS_ITS | Encounter Summary ---
Author Organization [facility] Address [address] [facility] [place] [address] Phone Care Team Providers Care Hazardous Waste Technician Name Role Phone Dandy Harrell MD Primary Care Provider [phone] Fabby Levine APRN, ZIPPER MACHINE OPERATOR Unavailable Reason for Visit * Reason Comments Medication Refill Encounter Details Date Type Department Care Team (Late st Contact Info) Description 11/11/2020 Refill [facility] Medical Group - Family Medicine [facility] [address] [place] [address] Dandy Harrell MD [address] [place] [address] Medication Refill Social History Tobacco Use Types [...] Visits Recent Outpatient Visits 2 months ago [facility] - Family Medicine - Dandy Castillo MD 4 months ago Impacted cerumen of both ears [facility], ZIPPER MACHINE OPERATOR 6 months ago Chest pain, unspecified type [facility] Dandy Nguyen MD 6 months ago Folliculitis [facility] Dandy Nguyen MD 7 months ago Uncomplicated asthma, unspecified asthma severity, unspecified whether persistent [facility] MD Upcoming Appointments LEVEE SUPERINTENDENT - Recent and Past Visits Recent Visits Date Type Provider Dept 08/28/20 Telemedicine Dandy Harrell MD [facility] 07/03/20 Office Visit Rut Anderson APN, ZIPPER MACHINE OPERATOR [facility] [place] 05/14/20 Office Visit HarrellDandy tierney MD [...] documented as of this encounter Care Teams Hazardous Waste Technician Relationship Specialty Start Date End Date Dandy Harrell MD PCP - General Family Medicine 09/12/19 Fabby Levine APRN, ZIPPER MACHINE OPERATOR [address] [place] [address] Nurse Practitioner Advanced Practice Nurse 03/06/23 documented as of this encounter
--- OUTSIDE RECORDS SUMMARY | 2024-12-16 01:43 | XMS_ITS | Encounter Summary ---
Author Organization [facility] Address [address] [facility] [place] [address] Phone Care Team Providers Care Scrubbing Machine Operator Name Role Phone Dandy Harrell MD Primary Care Provider [phone] Fabby Levine APRN, JACKET CHANGER Unavailable Reason for Visit * Reason Comments Medication Refill Encounter Details Date Type Department Care Team (Late st Contact Info) Description 12/01/2022 Refill [facility] Medical Group - Family Medicine [facility] [address] [place] [address] Dandy Harrell MD [address] [place] [address] Medication Refill Social History Tobacco Use Types [...] 10/06/22 Office Visit Jose Nelson APRN, DEEPALI [facility] [place] Showing recent visits within past 365 [...] documented as of this encounter Care Teams Scrubbing Machine Operator Relationship Specialty Start Date End Date Dandy Harrell MD PCP - General Family Medicine 09/12/19 Fabby Levine APRN, JACKET CHANGER [address] [place] [address] Nurse Practitioner Advanced Practice Nurse 03/06/23 documented as of this encounter
--- OUTSIDE RECORDS SUMMARY | 2024-12-16 01:43 | XMS_ITS | Encounter Summary ---
Author Organization [facility] Address [address] [facility] [place] [address] Phone Care Team Providers Care Chip Silo Tender Name Role Phone Dandy Harrell MD Primary Care Provider [phone] Fabby Levine APRN, AIRFRAME TECHNICIAN Unavailable Reason for Visit * Reason Comments Medication Refill Encounter Details Date Type Department Care Team (Late st Contact Info) Description 12/06/2023 Refill [facility] Medical Group - Family Medicine [facility] [address] [place] [address] Dandy Harrell MD [address] [place] [address] Medication Refill Social History Tobacco Use Types [...] 04/15/23 Office Visit Amira Loja APRN, CNP [facility] Showing recent visits within past 365 [...] documented as of this encounter Care Teams Chip Silo Tender Relationship Specialty Start Date End Date Dandy Harrell MD PCP - General Family Medicine 09/12/19 Fabby Levine APRN, AIRFRAME TECHNICIAN [address] [place] [address] Nurse Practitioner Advanced Practice Nurse 03/06/23 documented as of this encounter
--- OUTSIDE RECORDS SUMMARY | 2024-12-16 01:43 | XMS_ITS | Encounter Summary ---
Author Organization [facility] Address [address] [facility] [place] [address] Phone Care Team Providers Care Computer Operations Technician Name Role Phone Dandy Harrell MD Primary Care Provider [phone] Fabby Levine APRN, EMERY GRINDER Unavailable Reason for Visit * Reason Comments Medication Refill Encounter Details Date Type Department Care Team (Late st Contact Info) Description 09/29/2022 Refill [facility] Medical Group - Family Medicine [facility] [address] [place] [address] Dandy Harrell MD [address] [place] [address] Medication Refill Social History Tobacco Use Types [...] Emerald Silva RMA - 10/01/2022 8:13 AM MANAGER DENTAL scheduled GER DENTAL * Telephone Encounter - Penelope Galeana RN - 09/29/2022 9:47 AM MANAGER DENTAL Needs appointment. Medication failed the protocol, provider [...] 90 days and meeting all other requirements GER DENTAL documented in this encounter Plan of Treatment Not on file documented as of this encounter Visit Diagnoses Diagnosis Gastroesophageal reflux disease without esophagitis Esophageal reflux documented in this encounter Additional Health Concerns Assessment Noted Time PHQ-9 Depression Total Score: 0 12/27/19 21 4:00 PM CDT documented as of this encounter Care Teams Computer Operations Technician Relationship Specialty Start Date End Date Dandy Harrell MD PCP - General Family Medicine 09/12/19 Fabby Levine APRN, EMERY GRINDER [address] [place] [address] Nurse Practitioner Advanced Practice Nurse 03/06/23 documented as of this encounter
--- OUTSIDE RECORDS SUMMARY | 2024-12-16 01:43 | XMS_ITS | Encounter Summary ---
Author Organization [facility] Address [address] [facility] [place] [address] Phone Care Team Providers Care Shelter Supervisor Name Role Phone Dandy Harrell MD Primary Care Provider [phone] Fabby Levine APRN, PHOTOGRAPHY SPOTTER Unavailable Reason for Visit * Reason Comments Medication Refill Encounter Details Date Type Department Care Team (Late st Contact Info) Description 02/06/2023 Refill [facility] Medical Group - Gastroenterology - [place] [address] [place] [address] Chayo Dominguez Kathia, PAC [address] [place] [address] Medication Refill Social History Tobacco Use Types [...] documented as of this encounter Care Teams Shelter Supervisor Relationship Specialty Start Date End Date Dandy Harrell MD PCP - General Family Medicine 09/12/19 Fabby Levine APRN, PHOTOGRAPHY SPOTTER [address] [place] [address] Nurse Practitioner Advanced Practice Nurse 03/06/23 documented as of this encounter
--- OUTSIDE RECORDS SUMMARY | 2024-12-16 01:43 | XMS_ITS | Encounter Summary ---
Author Organization [facility] Address [address] [facility] [place] [address] Phone Care Team Providers Care Fiberglass Quality Technician Name Role Phone Dandy Harrell MD Primary Care Provider [phone] Fabby Levine APRN, PRECISION DANCER Unavailable Reason for Visit * Reason Comments Medication Refill Encounter Details Date Type Department Care Team (Late st Contact Info) Description 11/25/2023 Refill [facility] Medical Group - Gastroenterology - [place] [address] [place] [address] Fabby Levine APRN, PRECISION DANCER [address] [place] [address] Medication Refill Social History Tobacco Use Types [...] AM CDT Medication refilled and signed per [facility] chronic medication standing order for pediatric and adult patients. documented in this encounter Plan of Treatment Not on file documented as of this encounter Visit Diagnoses Diagnosis Other irritable bowel syndrome documented in this encounter Additional Health Concerns Assessment Noted Time PHQ-9 Depression Total Score: 0 12/27/19 21 4:00 PM CDT documented as of this encounter Care Teams Fiberglass Quality Technician Relationship Specialty Start Date End Date Dandy Harrell MD PCP - General Family Medicine 09/12/19 Fabby Levine APRN, PRECISION DANCER [address] [place] [address] Nurse Practitioner Advanced Practice Nurse 03/06/23 documented as of this encounter
--- OUTSIDE RECORDS SUMMARY | 2024-12-16 01:43 | XMS_ITS | Referral Summary ---
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
--- OUTSIDE RECORDS SUMMARY | 2024-12-16 01:43 | XMS_ITS | Encounter Summary ---
Author Organization [facility] Address [address] [facility] [place] [address] Phone Care Team Providers Care Battery Mechanic Name Role Phone Dandy Harrell MD Primary Care Provider [phone] Fabby Levine APRN, PURCHASER Unavailable Reason for Visit * Reason Comments Medication Refill Encounter Details Date Type Department Care Team (Late st Contact Info) Description 08/21/2021 Refill [facility] Medical Group - Family Medicine [facility] [address] [place] [address] Dandy Harrell MD [address] [place] [address] Medication Refill Social History Tobacco Use Types [...] COVID-19? No / Unsure 08/13/2021 2:52 PM FIGHT MANAGER documented as of this encounter Miscellaneous [...] [facility] 08/28/20 Telemedicine Dandy [facility]rell MD [facility] [place] Showing recent visits within past 365 [...] [facility] 08/28/20 Telemedicine Dandy Harrell MD [facility] [place] Showing recent visits within past 365 days and meeting all other requirements Future Appointments No visits were found meeting these conditions. Showing future appointments within next 90 days and meeting all other requirements Passed - Active short-acting beta agonist prescription T MANAGER * Telephone Encounter - Jerica Reid RN [...] Receipt confirmed by pharmacy (08/07/2021 11:40 AM FIGHT MANAGER) Order Questions ?? ipratropium-albuterol (DUO-NEB) 0.5-2.5 (3) MG/3ML Solution [[id number]] 1140 Status: Active Ordering user: Jose Nelson APRN, CNP 08/07/21 1140 Authorized by: Jose Nelson APRN, CNP PRN reasons: Shortness of Breath Frequency: Q6H PRN 08/07/21 - Until Discontinued Diagnoses Mild intermittent asthma without complication [J45.20] Associated Diagnoses Mild intermittent asthma without complication Pharmacy [facility] [id number] [place] [id number] CARMELITA GURPREET T MANAGER documented in this encounter Plan of Treatment Not on file documented as of this encounter Visit Diagnoses Diagnosis Mild intermittent asthma without complication Unspecified asthma documented in this encounter Additional Health Concerns Assessment Noted Time PHQ-9 Depression Total Score: 0 12/27/19 21 4:00 PM CDT documented as of this encounter Care Teams Battery Mechanic Relationship Specialty Start Date End Date Dadny Harrell MD PCP - General Family Medicine 09/12/19 Fabby Levine APRN, PURCHASER [address] [place] [address] Nurse Practitioner Advanced Practice Nurse 03/06/23 documented as of this encounter
--- OUTSIDE RECORDS SUMMARY | 2024-12-16 01:43 | XMS_ITS | Encounter Summary ---
Author Organization [facility] Address [address] [facility] [place] [address] Phone Care Team Providers Care Finish Inspector Name Role Phone Dandy Harrell MD Primary Care Provider Fabby Levine APRN, SHEET ROCK APPLICATOR Unavailable Reason for Visit * Reason Onset Date Comments Anxiety 08/27/2021 Encounter Details Date Type Department Care Team (Late st Contact Info) Description 08/27/2021 Nurse [facility]riage [facility] [address] [place] [address] Dandy Harrell MD [address] [place] [address] Anxiety Social History Tobacco Use [...] COVID-19? No / Unsure 08/13/2021 2:52 PM HEALTH INFORMATION PROVIDER documented as of this encounter Miscellaneous Notes * Telephone Encounter - Rosa Lei - 08/27/2021 2:24 PM CST Reason for Disposition ??? Symptoms interfere with work or school Protocols used: ANXIETY AND PANIC ATTACK-A-OH S: Anxiety B: Patient calling to schedule OV for his anxiety. Says he was recently hospitalized in [place] and was given a medication (he is [...] does not wish to wait that long. TH INFORMATION PROVIDER TH INFORMATION PROVIDER documented in this encounter Plan of Treatment Not on file documented as of this encounter Visit Diagnoses Not on filedocumented in this encounter Additional Health Concerns Assessment Noted Time PHQ-9 Depression Total Score: 0 12/27/19 21 4:00 PM CDT documented as of this encounter Care Teams Finish Inspector Relationship Specialty Start Date End Date Dandy Harrell MD PCP - General Family Medicine 09/12/19 Fabby Levine APRN, DEEPALI [address] [place] [address] Nurse Practitioner Advanced Practice Nurse 03/06/23 documented as of this encounter
--- OUTSIDE RECORDS SUMMARY | 2024-12-16 01:43 | XMS_ITS | Encounter Summary ---
Author Organization [facility] Address [address] [facility] [place] [address] Phone Care Team Providers Care Musician Instrumental Name Role Phone Dandy Harrell MD Primary Care Provider [phone] Fabby Levine APRN, DIP UNIT OPERATOR Unavailable Reason for Visit * Reason Comments Medication Refill Encounter Details Date Type Department Care Team (Late st Contact Info) Description 01/12/2023 Refill [facility] Medical [facility] - Family Medicine [facility] [address] [place] [address] Dandy Harrell MD [address] [place] [address] Medication Refill Social History Tobacco Use Types [...] documented as of this encounter Care Teams Musician Instrumental Relationship Specialty Start Date End Date Dandy Harrell MD PCP - General Family Medicine 09/12/19 Fabby Levine APRN, DIP UNIT OPERATOR [address] [place] [address] Nurse Practitioner Advanced Practice Nurse 03/06/23 documented as of this encounter
--- OUTSIDE RECORDS SUMMARY | 2024-12-16 01:43 | XMS_ITS | Encounter Summary ---
Author Organization [facility] Address [address] [facility] [place] [address] Phone Care Team Providers Care Rig Mechanic Name Role Phone Dandy Harrell MD Primary Care Provider [phone] Fabby Levine APRN, SENIOR SAS PROGRAMMER Unavailable Reason for Visit * Reason Comments Medication Refill Encounter Details Date Type Department Care Team (Late st Contact Info) Description 06/05/2020 Refill [facility] Medical Group - Family Medicine [facility] [address] [place] [address] Dandy Harrell MD [address] [place] [address] Medication Refill Social History Tobacco Use Types [...] 3 weeks ago Chest pain, unspecified type [facility] - Family Medicine - Dandy Castillo MD 1 month ago Folliculitis [facility] Family Medicine - Dandy Castillo MD 2 months ago Uncomplicated asthma, unspecified asthma severity, unspecified whether persistent [facility] - Family Medicine - Dandy Castillo MD 6 months ago Irritable bowel syndrome with diarrhea [facility] - Family Medicine Dandy Nguyen MD 6 months ago Diarrhea, unspecified type [facility] Family Medicine Dandy Nguyen MD Upcoming Appointments Future Appointments In 1 month Chayo Dominguez January, PAC [facility] - Gastroenterology [place] In [address], [facility] [employer] SOCIAL WORKER - Recent and Past Visits Recent Visits Date Type Provider Dept 05/14/20 Office Visit Dandy Harrell MD [facility] 05/01/20 Office Visit Dandy Harrell MD [facility] 03/22/20 Office Visit Dandy Harrell MD [facility] 11/21/19 Telemedicine Dandy Harrell MD [facility] 11/11/19 Telemedicine Dandy Harrell MD [facility] 07/21/19 Office Visit Dandy Harrell MD [facility] [place] 07/13/19 Office Visit Ariadna Arrington PAC [facility] Showing recent visits within past 460 [...] documented as of this encounter Care Teams Rig Mechanic Relationship Specialty Start Date End Date Dandy Harrell MD PCP - General Family Medicine 09/12/19 Fabby Levine APRN, SENIOR SAS PROGRAMMER [address] [place] [address] Nurse Practitioner Advanced Practice Nurse 03/06/23 documented as of this encounter
--- OUTSIDE RECORDS SUMMARY | 2024-12-16 01:43 | XMS_ITS | Encounter Summary ---
Author Organization [facility] Address [address] [facility] [place] [address] Phone Care Team Providers Care Spout Liner Name Role Phone Dandy Harrell MD Primary Care Provider Fabby Levine APRN, BEHAVIORAL HEALTH SPECIALIST Unavailable Reason for Visit * Reason Comments Medication Refill Encounter Details Date Type Department Care Team (Late st Contact Info) Description 06/22/2023 Refill [facility] Medical Group - Gastroenterology - [place] [address] [place] [address] Fabby Levine APRN, BEHAVIORAL HEALTH SPECIALIST [address] [place], [place] [id number] Medication Refill Social History Tobacco Use Types [...] Melinda Camara RN - 06/22/2023 10:13 AM CERTIFIED ORTHOTIST/PEDORTHIST Medication refilled and signed per [facility] chronic medication standing order for pediatric and adult patients. IFIED ORTHOTIST/PEDORTHIST documented in this encounter Plan of Treatment Not on file documented as of this encounter Visit Diagnoses Diagnosis Other irritable bowel syndrome documented in this encounter Additional Health Concerns Assessment Noted Time PHQ-9 Depression Total Score: 0 12/27/19 21 4:00 PM CDT documented as of this encounter Care Teams Spout Liner Relationship Specialty Start Date End Date Dandy Harrell MD PCP - General Family Medicine 09/12/19 Fabby Levine APRN, BEHAVIORAL HEALTH SPECIALIST [address] [place] [address] Nurse Practitioner Advanced Practice Nurse 03/06/23 documented as of this encounter
--- OUTSIDE RECORDS SUMMARY | 2024-12-16 01:43 | XMS_ITS | Encounter Summary ---
Author Organization [facility] Address [address] [facility] [place] [address] Phone Care Team Providers Care Gristmiller Name Role Phone Dandy Harrell MD Primary Care Provider [phone] Fabby Levine APRN, BUSINESS PERFORMANCE ANALYST Unavailable Reason for Visit * Reason Comments Medication Refill Encounter Details Date Type Department Care Team (Late st Contact Info) Description 02/25/2021 Refill [facility] Medical Group - Family Medicine [facility] [address] [place] [address] Dandy Harrell MD [address] [place] [address] Medication Refill Social History Tobacco Use Types [...] Telephone Encounter - Jerica Reid RN - 02/26/2021 8:35 AM CDT [...] [place] 07/03/20 Office Visit Rut Anderson APN, BUSINESS PERFORMANCE ANALYST [facility] [place] 05/14/20 Office Visit Dandy Harrell MD [facility] 05/01/20 Office Visit Dandy Harrell MD [facility] 03/22/20 Office Visit Dandy Harrell MD [facility] [place] Showing recent visits within past 365 [...] [facility] [place] 08/28/20 Telemedicine Dandy Harrell MD [facility] [place] 07/03/20 Office Visit Rut Anderson APN, DEEPALI [facility] [place] 05/14/20 Office Visit Dandy Harrell MD [facility] [place] 05/01/20 Office Visit Dandy Harrell MD [facility] [place] 03/22/20 Office Visit Dandy Harrell MD [facility] [place] Showing recent visits within past 365 days and meeting all other requirements Future Appointments No visits were found meeting these conditions. Showing future appointments within next 90 days and meeting all other requirements * Telephone Encounter - Katherine Rock RN - 02/25/2021 3:14 PM CDT Calling to request refill. Warm transferred to [facility] in Med Management. documented in this encounter Plan of Treatment Not on file documented as of this encounter Visit Diagnoses Diagnosis Mild intermittent asthma without complication Unspecified asthma Other irritable bowel syndrome documented in this encounter Additional Health Concerns Assessment Noted Time PHQ-9 Depression Total Score: 0 12/27/19 4:00 PM CDT documented as of this encounter Care Teams Gristmiller Relationship Specialty Start Date End Date Dandy Harrell MD PCP - General Family Medicine 09/12/19 Fabby Levine APRN, BUSINESS PERFORMANCE ANALYST [address] [place] [address] Nurse Practitioner Advanced Practice Nurse 03/06/23 documented as of this encounter
--- OUTSIDE RECORDS SUMMARY | 2024-12-16 01:44 | XMS_ITS | Clinical Summary ---
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
--- OUTSIDE RECORDS SUMMARY | 2024-12-16 01:44 | XMS_ITS | Clinical Summary ---
Author Organization [facility] Address [address] [place] [address] Phone Care Team Providers Care Healthcare Sales Representative Name Role Phone Dandy Harrell MD Primary Care Provider [phone] Fabby Levine APRN, SPORTS BROADCASTER Unavailable Allergies Active Allergy Reactions Criticality Noted [...] 360 Tablet 1 4 Active nystatin (MYCOSTATIN) 822299 UNIT/ML Suspension TAKE 5 ML BY MOUTH [...] CDT Respiratory Rate 16 07/10/2023 2:08 PM PACKAGER HAND Oxygen Saturation 99% 01/13/2024 9:02 AM CDT [...] measures to stabilize the patient. Care Teams Healthcare Sales Representative Relationship Specialty Start Date End Date Danyd Harrell MD PCP - General Family Medicine 09/12/19 Fabby Levine, FINISHING AREA OPERATOR, SPORTS BROADCASTER [address] [place] [address] Nurse Practitioner Advanced Practice Nurse 03/06/23
--- NOTE | 2024-12-16 01:54 | ED.GENADULT ---
HPI - General Adult General Chief complaint: Upper Respiratory Infection Stated complaint: upper resp Time Seen by Provider: 12/16/24 00:50 Source: patient Mode of arrival: ambulatory Limitations: no limitations History of Present Illness HPI narrative: 34-year-old with a history of asthma here with complaints of cough, wheezing for past few days. 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 He denies any fever or chills. He states that he has been using his inhalers and nebulizers. Onset (ago): week(s) (1) Severity: moderate Related Data Home Medications ?Medication ?Instructions ?Recorded ?Confirmed ?Last Taken ?Type pantoprazole 20 mg tablet,delayed 20 mg PO DAILY 04/21/21 06/05/23 Unknown History release hyoscyamine sulfate 0.125 mg tablet 0.125 mg PO PRN PRN Cramps 04/23/21 06/05/23 Unknown History Allergies Allergy/AdvReac Type Severity Reaction Status Date / Time famotidine AdvReac Swelling Verified 12/15/24 23:14 omeprazole AdvReac Nausea and Verified 03/31/24 15:27 Vomiting Review of Systems Review of Systems: All systems reviewed & are unremarkable except as noted in HPI and below Constitutional: Constitutional: Reports no additional constitutional complaints Eyes: Eyes: Reports no additional eye complaints ENT: Reports system reviewed and no additional complaints, except as documented Cardiovascular: Cardiovascular: Reports no additional cardiovascular complaints Respiratory: Respiratory: Reports as per HPI Gastrointestinal: Gastrointestinal: Reports no additional gastrointestinal complaints Musculoskeletal: Musculoskeletal: Reports no additional musculoskeletal complaints Integumentary/Breasts: Skin/Breast: Reports system reviewed and no additional complaints, except as docu PMFSH Past Medical History Medical History Crohn's disease Asthma Surgical History Surgical History No history of previous surgery Social History Social History Smoking status: Never smoker Alcohol intake: current Alcohol use details: Rarely Substance use: never Gender identity (if verbalized by the patient): Male Exam Narrative: GENERAL: Well-appearing, well-nourished, and in no acute distress. HEAD: Normocephalic, atraumatic. EYES: PERRLA and EOMI. ENT: Nares clear, no rhinorrhea or epistaxis. Mucous membranes moist. NECK: Supple. CHEST: Bilateral wheeze, HEART: Regular rate and rhythm. No murmur heard. Normal peripheral pulses. ABDOMEN: Soft, nontender, nondistended, normal active bowel sounds. EXTREMITIES: Normal range of motion. No edema. SKIN: Warm, dry, no rash. NEURO: No focal deficits. Alert and oriented x3. PSYCH: Normal mood and affect. Course Course Emergency Course: Patient feeling much better after the neb treatment. Advised him to continue his nebulizer and take steroids as prescribed Vital Signs Vital signs: Vital Signs Temperature 36.8 C 12/15/24 23:16 Pulse Rate 84 12/15/24 23:16 Respiratory Rate 20 12/15/24 23:16 Blood Pressure 145/90 H 12/15/24 23:16 Pulse Oximetry 94 12/15/24 23:16 Oxygen Delivery Room Air 12/15/24 23:16 Temperature 36.8 C 12/15/24 23:16 Pulse Rate 78 12/16/24 01:25 Respiratory Rate 20 12/16/24 01:25 Blood Pressure 145/90 H 12/15/24 23:16 Pulse Oximetry 94 12/16/24 01:25 Oxygen Delivery Room Air 12/16/24 01:25 Medical Decision Making Vital Signs Vital Signs: Vital Signs Temperature 36.8 C 12/15/24 23:16 Pulse Rate 84 12/15/24 23:16 Respiratory Rate 20 12/15/24 23:16 Blood Pressure 145/90 H 12/15/24 23:16 Pulse Oximetry 94 12/15/24 23:16 Oxygen Delivery Room Air 12/15/24 23:16 Temperature 36.8 C 12/15/24 23:16 Pulse Rate 78 12/16/24 01:25 Respiratory Rate 20 12/16/24 01:25 Blood Pressure 145/90 H 12/15/24 23:16 Pulse Oximetry 94 12/16/24 01:25 Oxygen Delivery Room Air 12/16/24 01:25 Discharge Plan Discharge Clinical Impression: Asthma Patient Disposition: Home Condition: Stable Instructions: Asthma (DC) Patient Language: Portuguese Prescriptions: New prednisone 20 mg tablet 20 mg PO BID Qty: 14 0RF No Action methylprednisolone [Medrol (Jhony)] 4 mg tablets,dose pack See Rx Instructions PO .COMPLEX Qty: 21 0RF Rx Instructions: orally per package directions fluticasone propionate [Flonase Allergy Relief] 50 mcg/actuation spray,suspension 2 spray intranasal DAILY Qty: 16 0RF Rx Instructions: administer into each nostril pantoprazole 20 mg tablet,delayed release (DR/EC) 20 mg PO DAILY hyoscyamine sulfate 0.125 mg tablet 0.125 mg PO PRN PRN (Reason: Cramps) sulfamethoxazole-trimethoprim 800-160 mg tablet 1 tablet PO Q12H Qty: 20 0RF ibuprofen 800 mg tablet 800 mg PO TID PRN (Reason: pain) 7 Days Qty: 21 0RF acetaminophen 500 mg tablet 1,000 mg PO TID PRN (Reason: bart) 7 Days Qty: 42 0RF nystatin 100,000 unit/mL suspension 5 ml PO QID Qty: 200 0RF Rx Instructions: swish and spit prednisone 50 mg tablet 50 mg PO DAILY Qty: 7 0RF Follow-up/Referrals: Julio Cesar,Dandy Deras MD [Primary Care Provider] -
== END 2024-12-16 02:13 | disposition home or self-care (01) ==
PROVIDERS: Emergency Provider Family Medicine; PCP Family Medicine
DX: J45.909 Unspecified asthma, uncomplicated (principal); K50.90 Crohn's disease, unspecified, without complications
CPT/HCPCS: 94640; 99283; J7512

== ENCOUNTER 2025-04-01 15:38 | Emergency (ER) | payer OTHER, SELFPAY ==
[2025-04-01 15:49] VITALS: BP 153/86; PULSE 92; RESP 16; TEMP 36.4; O2SAT 98
--- NOTE | 2025-04-01 16:09 | ED_ITS ---
HPI - General Adult General Chief complaint: Upper Respiratory Infection Stated complaint: THRUSH Source: patient Mode of arrival: ambulatory Limitations: no limitations History of Present Illness HPI narrative: Patient presents requesting a prescription for nystatin. He has a history of thrush related to nebulizer use. He typically has a standing prescription but establish care with a new provider and has not received the medication. He tried calling the primary provider this week several times but never received the prescription. He has noted a white plaque on his tongue since Thursday of this week. Denies any difficulty breathing or swallowing. He states it is not particularly painful. Denies any other complaints Related Data Home Medications ?Medication ?Instructions ?Recorded ?Confirmed ?Last Taken ?Type pantoprazole 20 mg tablet,delayed 20 mg PO DAILY 04/2104/01/25 Unknown History release hyoscyamine sulfate 0.125 mg tablet 0.125 mg PO PRN AR N Cramps 04/23/21 04/01/25 Unknown History Allergies Allergy/AdvReac Type Severity Reaction Status Date / Time dicyclomine Allergy Unknown Unknown Verified 04/01/25 15:48 famotidine AdvReac Swelling Verified 04/01/25 15:48 omeprazole AdvReac Nausea and Verified 04/01/25 15:48 Vomiting Review of Systems Review of Systems: CONSTITUTIONAL: Denies fever, chills, or sweats. EYES: Denies visual changes, redness, or discharge. ENT: Reports white plaque to tongue. Denies any considerable pain in the mouth. Denies any difficulty breathing or swallowing CARDIOVASCULAR: Denies chest pain, palpitations, or edema. RESPIRATORY: Denies cough or dyspnea. GASTROINTESTINAL: Denies abdominal pain, nausea, vomiting, or diarrhea. GENITOURINARY: Denies dysuria or hematuria. SKIN: Denies rash or itching. MUSCULOSKELETAL: Denies back pain, joint pain, or myalgia. NEUROLOGIC: Denies headache, numbness, dizziness, or weakness. PSYCHIATRIC: Denies anxiety or depression. [facility] Past Medical History Medical History GERD (gastroesophageal reflux disease) Crohn's disease Asthma Surgical History Surgical History No history of previous surgery Family History Family History Mother Family history non-contributory Social History Social History Smoking status: Never smoker Alcohol intake: current Alcohol use details: Rarely Substance use: never Gender identity (if verbalized by the patient): Male Exam Narrative: GENERAL: Well-appearing, well-nourished, and in no acute distress. HEAD: Normocephalic, atraumatic. EYES: PERRLA and EOMI. ENT: Nares clear, no rhinorrhea or epistaxis. Mucous membranes moist. there is a white plaque noted to the tongue. Oropharynx without tonsillar hypertrophy exudate or other lesions. Bilateral TMs pearly bettencourt nonbulging NECK: Supple. No adenopathy or masses. No carotid bruits or JVD CHEST: Clear to auscultation. No respiratory distress. No wheezes rales or rhonchi HEART: Regular rate and rhythm. No murmur heard. Normal peripheral pulses. ABDOMEN: Soft, nontender, nondistended, normal active bowel sounds. EXTREMITIES: Normal range of motion. No edema. SKIN: Warm, dry, no rash. NEURO: No focal deficits. Alert and oriented x3. PSYCH: Normal mood and affect. Course Course Emergency Course: This is a 34-year-old male who presented for a prescription for nystatin suspension. He does have thrush on exam. Will discharge with nystatin. Follow-up with primary provider. Go to the ER for worsening symptoms. Patient in agreement with plan of care. Level of Care: Express Care Visit Vital Signs Vital signs: Vital Signs Temperature 36.4 C L 04/01/25 15:49 Pulse Rate 92 04/01/25 15:49 Respiratory Rate 16 04/01/25 15:49 Blood Pressure 153/86 H 04/01/25 15:49 Pulse Oximetry 98 04/01/25 15:49 Temperature 36.4 C L 04/01/25 15:49 Pulse Rate 92 04/01/25 15:49 Respiratory Rate 16 04/01/25 15:49 Blood Pressure 153/86 H 04/01/25 15:49 Pulse Oximetry 98 04/01/25 15:49 Medical Decision Making Vital Signs Vital Signs: Vital Signs Temperature 36.4 C L 04/01/25 15:49 Pulse Rate 92 04/01/25 15:49 Respiratory Rate 16 04/01/25 15:49 Blood Pressure 153/86 H 04/01/25 15:49 Pulse Oximetry 98 04/01/25 15:49 Temperature 36.4 C L 04/01/25 15:49 Pulse Rate 92 04/01/25 15:49 Respiratory Rate 16 04/01/25 15:49 Blood Pressure 153/86 H 04/01/25 15:49 Pulse Oximetry 98 04/01/25 15:49 Discharge Plan Discharge Clinical Impression: Candidiasis of mouth Patient Disposition: Home Condition: Stable Instructions: Antibiotic Form, Oral Candidiasis (ED) Patient Language: [place] Prescriptions: New nystatin 100,000 unit/mL suspension 500,000 unit buccal QID Qty: 473 0RF Rx Instructions: administer 1/2 of dose in each side of the mouth No Action fluticasone propionate [Flonase Allergy Relief] 50 mcg/actuation spray,suspension 2 spray intranasal DAILY Qty: 16 0RF Rx Instructions: administer into each nostril pantoprazole 20 mg tablet,delayed release (DR/EC) 20 mg PO DAILY hyoscyamine sulfate 0.125 mg tablet 0.125 mg PO PRN PRN (Reason: Cramps) ibuprofen 800 mg tablet 800 mg PO TID PRN (Reason: pain) 7 Days Qty: 21 0RF acetaminophen 500 mg tablet 1,000 mg PO TID PRN (Reason: bart) 7 Days Qty: 42 0RF Follow-up/Referrals: Omar,Jsoe [Other] Time of Disposition: 15:55
== END 2025-04-01 15:57 | disposition home or self-care (01) ==
PROVIDERS: Emergency Provider Nurse Practitioner
DX: B37.0 Candidal stomatitis (principal); K50.90 Crohn's disease, unspecified, without complications; J45.909 Unspecified asthma, uncomplicated; K21.9 Gastro-esophageal reflux disease without esophagitis
CPT/HCPCS: 99213; G0463